=== PATIENT | male | born 2000 | race Caucasian/White ===

== ENCOUNTER 2021-09-17 11:10 | Outpatient (REF) | payer OTHER, SELFPAY ==
[2021-09-17 13:22] LABS: MANUAL DIFF FLAG NO
[2021-09-17 13:25] LABS: Basophils Percent Auto 0.7 % (0-2); Eosinophils Absolute Auto 0.1 X10*3/uL (0.0-0.4); Eosinophils Percent Auto 1.6 % (0-4); Hematocrit 39.5 % (42.0-52.0); Hemoglobin 13.5 g/dl (14.0-18.0); Imm Gran Abs Auto 0.01 X10*3/uL (0.00-0.03); Imm Gran Pct Auto 0.2 % (0.0-0.4); Lymphocytes Percent Auto 36.3 % (20-40); Mean Corpuscular HGB Conc 34.2 g/dl (31.0-36.0); Mean Corpuscular Hemoglobin 32.1 pg (27.0-33.0); Mean Platelet Volume 11.5 fL (9.4-12.4); Monocytes Absolute Auto 0.3 X10*3/uL (0.1-1.2); Monocytes Percent Auto 5.5 % (2-11); Neutrophils Absolute Auto 3.1 x10*3/uL (2.0-8.3); Neutrophils Percent Auto 55.7 % (45-73); Platelet Count 181 X10*3/uL (160-400); Red Cell Distribution Width 13.9 % (11.0-16.0); White Blood Count 5.6 X10*3/uL (4.8-10.8)
[2021-09-17 13:52] LABS: Alanine Aminotransferase 34 U/L (0-40); Albumin Level 4.5 g/dL (3.5-5.0); Alkaline Phosphatase 84 U/L (39-117); Anion Gap 11 (12-20); Aspartate Amino Transferase 20 U/L (5-37); Bilirubin Total 0.7 mg/dL (0.0-1.0); Blood Urea Nitrogen 17 mg/dL (9-16); Calcium 9.9 mg/dL (8.4-10.2); Carbon Dioxide 29 mmol/L (22-29); Chloride 105 mmol/L (96-108); Cholesterol 223 mg/dL; Estimated Glomerular Filt Rate > 60; Glucose Fasting 80 mg/dL (60-99); HDL Cholesterol 49 mg/dL; LDL Cholesterol Calculated 151 mg/dl; Potassium 5.2 mmol/L (3.3-5.1); Sodium 140 mmol/L (135-145); Total Protein 7.4 g/dL (6.5-8.0); Triglycerides 119 mg/dL
[2021-09-17 14:12] LABS: TSH reflex Free T4 0.67 uIU/mL (0.32-4.0)
[2021-09-17 14:26] LABS: Monotest Negative (Negative)
[2021-09-19 10:26] LABS: HBsAGNum1 0.19 S/CO (0.00-0.99); Hepatitis B Surface Antigen Negative (Negative); ~HepC Num1 0.22 S/CO (0.00-0.79); ~Hepatitis C Antibody Nonreactive (Nonreactive)
[2021-09-19 11:27] LABS: HBS Num1 7.97 mIU/mL (0-7.99); HBc Num1 0.12 S/CO (0.00-0.79); HIV AB/AG Nonreactive (Nonreactive); HIV Num 1 0.12 S/CO (0.00-0.99); Hepatitis B Core Antibody Nonreactive (Nonreactive); ~Hepatitis B Surface Antibody NONREACTIVE (Nonreactive)
[2021-09-20 08:34] LABS: Syphilis Screen Nonreactive (Nonreactive)
== END 2021-09-17 11:11 | disposition home or self-care (01) ==
LOC: HO.WFDLDS 11:10
PROVIDERS: Visit Provider Family Medicine
DX: Z00.00 Encounter for general adult medical examination without abnormal findings (principal); Z11.4 Encounter for screening for human immunodeficiency virus [HIV]; Z11.3 Encounter for screening for infections with a predominantly sexual mode of transmission; R59.1 Generalized enlarged lymph nodes
CPT/HCPCS: 36415; 80053; 80061; 84443; 85025; 86308; 86704; 86706; 86780; 86803; 87340; 87389

== ENCOUNTER 2021-10-02 13:44 | Outpatient (REF) | payer OTHER, SELFPAY ==
--- NOTE | ~2021-10-02 | CT_ITS ---
EXAMINATION: CT HEAD WITHOUT CONTRAST CLINICAL INFORMATION: Abnormal findings on diagnostic imaging COMPARISON: None available at the site TECHNIQUE: Contiguous axial imaging was performed from the skull base to vertex without intravenous administration of contrast. This CT examination was performed using dose optimization techniques as appropriate, variously including the following: *Automated exposure control *Adjustment of mA and/or kV according to patient size (this includes techniques or standardized protocols for targeted exams where dose is matched to indication/reason for exam; i.e. extremities or head) *Use of iterative reconstruction technique DLP: 768 mGy-cm FINDINGS: There is no evidence of acute intracranial hemorrhage or territorial infarction. There is a small right frontal extra-axial fluid collection likely a small arachnoid cyst or old seroma. No abnormal mass effect or midline shift is seen. Reeves to white matter differentiation is well preserved. No extra-axial fluid collections are identified. The ventricles are normal in size. There is no abnormal attenuation within the brain parenchyma. The osseous structures and soft tissues are normal. The mastoid air cells and visualized portions of the paranasal sinuses are well aerated. CT/CT head/brain wo con IMPRESSION: No acute intracranial process seen. Small right frontal extra-axial subarachnoid cyst. Differential diagnoses includes seroma.
== END 2021-10-02 13:45 | disposition home or self-care (01) ==
LOC: HO.CT 13:44
PROVIDERS: PCP Family Medicine; Visit Provider Family Medicine
DX: R93.0 Abnormal findings on diagnostic imaging of skull and head, not elsewhere classified (principal)
CPT/HCPCS: 70450

== ENCOUNTER 2023-07-27 07:48 | Emergency (ER) | payer OTHER, SELFPAY ==
--- NOTE | ~2023-07-27 | XR_ITS ---
EXAMINATION: XR ANKLE, RIGHT XR FOOT, RIGHT CLINICAL INFORMATION: Right foot and ankle pain. COMPARISON: None. TECHNIQUE: AP, lateral and oblique views of the right foot were obtained. AP and oblique views of the right ankle were obtained. FINDINGS: There is a small bone fragment at the dorsal aspect of the talus. There is a mildly displaced oblique fracture of the distal fibula above the syndesmosis. There is likely disruption of the syndesmosis and widening of the distal talofibular articulation. There is moderate lateral soft tissue swelling. XR/XR ankle RT 2V IMPRESSION: Avulsion fracture at the dorsal aspect of the wrist. Mildly displaced oblique fracture of the distal fibula above the syndesmosis.
--- NOTE | ~2023-07-27 | XR_ITS ---
EXAMINATION: XR ANKLE, RIGHT XR FOOT, RIGHT CLINICAL INFORMATION: Right foot and ankle pain. COMPARISON: None. TECHNIQUE: AP, lateral and oblique views of the right foot were obtained. AP and oblique views of the right ankle were obtained. FINDINGS: There is a small bone fragment at the dorsal aspect of the talus. There is a mildly displaced oblique fracture of the distal fibula above the syndesmosis. There is likely disruption of the syndesmosis and widening of the distal talofibular articulation. There is moderate lateral soft tissue swelling. XR/XR foot RT 2V IMPRESSION: Avulsion fracture at the dorsal aspect of the wrist. Mildly displaced oblique fracture of the distal fibula above the syndesmosis.
[2023-07-27 07:58] VITALS: BP 149/85; PULSE 78; RESP 20; TEMP 36.7; O2SAT 96; BMI 24.4
[2023-07-27] MEDS: Ibuprofen 600 MG TABLET PO (12:05)
[2023-07-27] MEDS: oxyCODONE HCl Immed Release 5 MG TABLET PO (12:05)
--- NOTE | 2023-07-27 12:15 | ED.LOWEXIN ---
HPI - Extremity Injury (Lower) General Chief Complaint: Extremity Injury, Lower Stated Complaint: R ankel inj Time Seen by Provider: 07/27/23 11:15 History of Present Illness HPI Narrative: Patient complains of right ankle pain after twisting it in wet grass last night, it is very painful to bear weight Denies any other injury no numbness weakness or tingling Related Data Home Medications Medication Instructions Recorded Confirmed amoxicillin 875 mg-potassium 1 tab PO Q12H 09/17/21 clavulanate 125 mg tablet docusate sodium 100 mg capsule 100 mg PO DAILY 09/17/21 ibuprofen 800 mg tablet 800 mg PO TID 09/17/21 Previous Rx's Medication Instructions Recorded acetaminophen 500 mg tablet 1,000 mg (2 x 500 mg) PO QID PRN 07/27/23 pain #30 tabs ibuprofen 600 mg tablet 600 mg PO Q6H PRN pain #20 tabs 07/27/23 oxycodone 5 mg tablet 5 mg PO Q6H PRN pain #20 tabs 07/27/23 Allergies Allergy/AdvReac Type Severity Reaction Status Date / Time No Known Allergies Allergy Verified 09/17/21 10:41 [facility] Past Medical History Source: nursing notes reviewed Medical History (Updated 07/27/23 @ 12:16 by KAYKAY Grace) History of appendicitis Social History Social History Housing: House Patient Tobacco Use Status: Current everyday Tobacco user Cigarettes Per Day: 6 e-Cigarette/Vaping Use: Never Used Second Hand Smoke Exposure: No Advance Directives: No Advance Directives Information Provided: No service: No Current occupational status: employed Current occupational exposures/hazards: No Cognitive needs: No Hearing needs: No Vision needs: No Physical Exam Vital Signs: Vital Signs: Last Vital Signs Temp 98.0 F 07/27/23 07:58 Pulse 78 07/27/23 07:58 Resp 20 07/27/23 07:58 BP 149/85 H 07/27/23 07:58 Pulse Ox 96 07/27/23 07:58 O2 Del Method Room Air 07/27/23 07:58 BMI result Body Mass Index 24.4 General appearance no distress Head is normocephalic atraumatic Neck is supple Respiratory no distress Extremities the right ankle had tenderness ecchymosis and swelling around lateral malleolus, neurovascular intact distal, skin intact Other extremities normal Course Course Course Narrative: X-ray showed a avulsion fracture of the dorsal aspect of the talus as well as a mildly displaced oblique fracture of the distal fibula as well as some possible widening of the syndesmosis I texted orthopedic physician asset protection assistant jennifer who advised splint, nonweightbearing and follow in clinic He is given a posterior and sterile splint as well as crutches which she handle easily and is discharged Medications Administered Discontinued Medications Generic Name Dose Route Start Last Admin Trade Name Freq PRN Reason Stop Dose Admin Ibuprofen 600 mg 07/27/23 12:01 07/27/23 12:05 Ibuprofen 600 Mg Tablet PO 07/27/23 12:02 600 mg ONCE ONE Administration Oxycodone HCl 5 mg 07/27/23 12:01 07/27/23 12:05 Oxycodone Hcl Immed Release 5 Mg Tablet PO 07/27/23 12:02 5 mg ONCE ONE Administration Discharge Plan Discharge Clinical Impression: Ankle fracture Patient Disposition: Home, Self-Care Additional Instructions: X-ray showed a broken fibula as well as a bad ankle sprain Follow with orthopedist, you will call the office in the make an appointment Return any time any worse condition or any concerns Elevate the leg apply ice Prescriptions: New acetaminophen 500 mg tablet 1,000 mg PO QID PRN (Reason: pain) Qty: 30 0RF ibuprofen 600 mg tablet 600 mg PO Q6H PRN (Reason: pain) Qty: 20 0RF oxycodone 5 mg tablet 5 mg PO Q6H PRN (Reason: pain) Qty: 20 0RF Rx Instructions: Partial Fill upon patient request. No Action amoxicillin-pot clavulanate 875-125 mg tablet 1 tab PO Q12H docusate sodium 100 mg capsule 100 mg PO DAILY ibuprofen 800 mg tablet 800 mg PO TID Referrals: Dwight Rojas MD [Physician] - (Fibula fracture)
== END 2023-07-27 12:22 | disposition home or self-care (01) ==
PROVIDERS: Emergency Provider Emergency Medicine; PCP Family Medicine
DX: S82.891A Other fracture of right lower leg, initial encounter for closed fracture (principal); M25.571 Pain in right ankle and joints of right foot; F17.210 Nicotine dependence, cigarettes, uncomplicated; X50.1XXA Overexertion from prolonged static or awkward postures, initial encounter; Y93.9 Activity, unspecified; Y92.9 Unspecified place or not applicable; Y99.9 Unspecified external cause status; Z79.899 Other long term (current) drug therapy; Z71.6 Tobacco abuse counseling
CPT/HCPCS: 73600; 73620; 99283

== ENCOUNTER 2023-07-28 13:16 | Outpatient (AMB) | payer OTHER, SELFPAY ==
--- NOTE | 2023-07-28 13:19 | A.OFFVIS_ITS ---
Intake Vital Signs 07/28/23 13:22 Height 6 ft Weight 180 lb BMI 24.4 Intake Visit Reasons: FC- RT mildly displaced oblique fx distal fibula Intake Note: Darian is a 23 year old male who presents today for a evaluation of his right ankle pain, DOI 07/26/23. Patient reports twisting his right ankle on wet grass, it is very painful to bear weight. He states not in too much pain due to taking his pain medication. Allergies No Known Allergies Allergy (Verified 07/28/23 13:19) HPI FC- RT mildly displaced oblique fx distal fibula HPI Details 23-year-old male who presents in the off ice today, as a new patient, for an evaluation of right ankle pain. The patient presented to the ED on 07/27/2023 status post twisting his ankle on wet grass the night before, on 07/26/2023. X-rays of the right ankle were obtained. The patient was placed in a posterior and stirrup splint with crutches and instructed to remain non-weight bearing. He states it is painful to bear weight on the right lower extremity. He states his pain is not to bad due to taking the pain medication. [facility] Medical History (Updated 07/28/23 @ 15:22 by Yamilex Loyola) History of appendicitis Social History Housing: House Patient Tobacco Use Status: Current everyday Tobacco user Cigarettes Per Day: 6 e-Cigarette/Vaping Use: Never Used Second Hand Smoke Exposure: No service: No Current occupational status: employed Current occupational exposures/hazards: No Cognitive needs: No Hearing needs: No Vision needs: No Review of Systems Const All systems reviewed & are unremarkable except as noted in HPI and below Physical Exam Vital Signs: BMI result Body Mass Index 24.4 Const General: cooperative, healthy appearing and no acute distress Resp Effort & Inspection: normal respiratory effort and able to speak in complete sentences Cardio Rate: regular rate Peripheral pulses: Peripheral pulses 2+ throughout GI Palpation (GI): Soft to palpation Skin Lesions: no lesions Rashes: no rashes Extrem Other: Right ankle: Lateral malleolus mild to moderate edema. Slightly able to dorsiflex and plantarflex but is limited due to pain. Tenderness to palpation along the distal fibula. Sensation intact. Pedal pulse intact. Office Procedures Fracture Care Fracture Billing Code: Fracture Billing Code Assessment & Plan Assessment & Plan (1) Avulsion fracture of right talus: Code(s): S92.151A - Displaced avulsion fracture (chip fracture) of right talus, initial encounter for closed fracture Qualifiers: Encounter type: initial encounter Fracture alignment: nondisplaced Fracture type: closed Qualified Code(s): S92.154A - Nondisplaced avulsion fra cture (chip fracture) of right talus, initial encounter for closed fracture (2) Fracture of distal end of right fibula: Code(s): S82.831A - Other fracture of upper and lower end of right fibula, initial encounter for closed fracture Qualifiers: Encounter type: initial encounter Fracture morphology: unspecified fracture morphology Fracture type: closed Qualified Code(s): S82.831A - Other fracture of upper and lower end of right fibula, initial encounter for closed fracture Plan Mr. Morrissey is a 23-year-old male who presents in the office today, as a new patient, for an evaluation of right ankle pain. The patient presented to the ED on 07/27/2023 status post twisting his ankle on wet grass the night before, on 07/26/2023. X-rays of the right ankle were obtained. The patient was placed in a posterior and sterile splint with crutches and instructed to remain non-weight bearing. He states it is painful to bear weight on the right lower extremity. He states his pain is not to bad due to taking the pain medication. Dr. Rojas was available to via phone to review the case with me and a collaborative treatment plan was made. The patient will be placed in a tall walking boot, off the shelf, while in the office today. He will weight bear as tolerated with crutches. Follow up will be in 2 weeks with repeat x-rays to revaluate for possible ankle mortise disruption after weightbearing, or sooner if needed. X-rays of the right ankle, obtained on 07/27/2023, revealed: Avulsion fracture of the talus. Mildly displaced oblique fracture of the distal fibula above the syndesmosis with no ankle mortise disruption. Patient Instructions: Scribed for Veda Urias PA-C by eileen Guo scribe, on 07/28/2023 at 1:30 pm, EST. Coding Level of Care Code New Pt Level 4 (45867) Diagnoses Closed nondisplaced avulsion fracture of right talus, initial encounter S92.154A Encounter type: initial encounter Fracture alignment: nondisplaced Fracture type: closed Closed fracture of distal end of right fibula, unspecified fracture morphology, initial encounter S82.831A Encounter type: initial encounter Fracture morphology: unspecified fracture morphology Fracture type: closed CPT Codes Fracture Care - Fracture Billing Code: Fracture Billing Code ([id number])
[2023-07-28 13:22] VITALS: BMI 24.4
== END 2023-07-28 14:08 | disposition home or self-care (01) ==
PROVIDERS: PCP Family Medicine; Visit Provider Physician Assistant
DX: S92.154A Nondisplaced avulsion fracture (chip fracture) of right talus, initial encounter for closed fracture (principal); S82.831A Other fracture of upper and lower end of right fibula, initial encounter for closed fracture; X50.9XXA Other and unspecified overexertion or strenuous movements or postures, initial encounter
CPT/HCPCS: 99204

== ENCOUNTER → 2023-07-28 13:16 | Outpatient (BNVA) | payer OTHER, SELFPAY | PROVIDERS: PCP Family Medicine; Visit Provider Physician Assistant | DX: S92.154A Nondisplaced avulsion fracture (chip fracture) of right talus, initial encounter for closed fracture (principal); S82.831A Other fracture of upper and lower end of right fibula, initial encounter for closed fracture | CPT/HCPCS: 99202 ==

== ENCOUNTER 2023-08-18 10:02 | Outpatient (AMB) | payer OTHER, SELFPAY ==
--- NOTE | 2023-08-18 10:12 | A.OFFVIS_ITS ---
Intake Vital Signs 08/18/23 10:15 Height 6 ft Weight 180 lb BMI 24.4 Intake Visit Reasons: OV - right ankle fx, DOI 07/26/23 Intake Note: Darian is a 23 year old male who presents today for a evaluation of his right distal fibula fx, DOI 07/26/23. Patient reports his pain is getting better. He states that the boot is providing him with relief. Allergies No Known Allergies Allergy (Verified 07/28/23 13:19) HPI OV - right ankle fx, DOI 07/26/23 HPI Details 23-year-old male who presents in the off ice today for a follow up of right ankle avulsion fracture of the talus and distal end of the right fibula, which occurred on 07/26/2023 status post slipping on wet grass causing him to twist his ankle. I last saw the patient in the office on 07/28/2023 when he was placed in a tall walking boot and in instructed to weight bear as tolerated with the aid of crutches. The patient reports the pain is getting better and states the boot is giving him relief. [facility] Medical History (Updated 07/28/23 @ 15:22 by Yamilex Loyola) History of appendicitis Social History Housing: House Patient Tobacco Use Status: Current everyday Tobacco user Cigarettes Per Day: 6 e-Cigarette/Vaping Use: Never Used Second Hand Smoke Exposure: No service: No Current occupational status: employed Current occupational exposures/hazards: No Cognitive needs: No Hearing needs: No Vision needs: No Review of Systems Const All systems reviewed & are unremarkable except as noted in HPI and below Physical Exam Vital Signs: BMI result Body Mass Index 24.4 Const General: cooperative, healthy appearing and no acute distress Resp Effort & Inspection: normal respiratory effort and able to speak in complete sentences Cardio Rate: regular rate Peripheral pulses: Peripheral pulses 2+ throughout GI Palpation (GI): Soft to palpation Skin Lesions: no lesions Rashes: no rashes Extrem Other: Right ankle: Tenderness to palpation along the lateral malleolus of the right ankle. Mild tenderness to palpation medial malleolus. No tenderness to palpation over the ATFL or deltoid. Able to dorsiflex, plantarflex, inversion, and eversion with mild to moderate stiffness and pain. Negative anterior drawer. Sensation intact. Pedal pulse intact. Assessment & Plan Assessment & Plan (1) Avulsion fracture of right talus: Code(s): S92.151A - Displaced avulsion fracture (chip fracture) of right talus, initial encounter for closed fracture Qualifiers: Encounter type: initial encounter Fracture alignment: nondisplaced Fracture type: closed Qualified Code(s): S92.154A - Nondisplaced avulsion fracture (chip fracture) of right talus, initial encounter for closed fracture (2) Fracture of distal end of right fibula: Code(s): S82.831A - Other fracture of upper and lower end of right fibula, initial encounter for closed fracture Qualifiers: Encounter type: initial encounter Fracture morphology: unspecified fracture morphology Fracture type: closed Qualified Code(s): S82.831A - Other fracture of upper and lower end of right fibula, initial encounter for closed fracture Plan Mr. Morrissey is a 23-year-old male who presents in the office today for a follow up of right ankle avulsion fracture of the talus and distal end of the right fibula, which occurred on 07/26/2023 status post slipping on wet grass causing him to twist his ankle. I last saw the patient in the office on 07/28/2023 when he was placed in a tall walking boot and in instructed to weight bear as tolerated with the aid of crutches. The patient reports the pain is getting better and states the boot is giving him relief. The patient will remain in the boot. He may weight bear as tolerated. He will be referred to physical therapy to work on ROM. Follow up will be in 4-5 weeks, or sooner if needed. X-rays of the right ankle which were obtained while in the office today and were reviewed by me, Veda Urias PA-C, revealed routine healing of a right avulsion fracture and distal fibula fracture with no ankle mortise disruption. Orders: Orders XR ankle RT min 3V Today M25.579 - Pain in unspecified ankle and joints of unspecified foot Patient Instructions: Scribed for Veda Urias PA-C by Yamilex Loyola medical scientist, on 08/18/2023 at 10:31 am, EST. Coding Level of Care Code Global (24715) Diagnoses Closed nondisplaced avulsion fracture of right talus, initial encounter S92.154A Encounter type: initial encounter Fracture alignment: nondisplaced Fracture type: closed Closed fracture of distal end of right fibula, unspecified fracture morphology, initial encounter S82.831A Encounter type: initial encounter Fracture morphology: unspecified fracture morphology Fracture type: closed
[2023-08-18 10:15] VITALS: BMI 24.4
== END 2023-08-18 10:32 | disposition home or self-care (01) ==
PROVIDERS: PCP Family Medicine; Visit Provider Physician Assistant
DX: S92.154A Nondisplaced avulsion fracture (chip fracture) of right talus, initial encounter for closed fracture (principal); S82.831A Other fracture of upper and lower end of right fibula, initial encounter for closed fracture
CPT/HCPCS: 99213

== ENCOUNTER 2023-08-18 11:15 | Outpatient (REF) | payer OTHER, SELFPAY ==
--- NOTE | ~2023-08-18 | XR_ITS ---
EXAMINATION: XR ANKLE, RIGHT CLINICAL INFORMATION: Pain. COMPARISON: Radiographs dated 07/27/2023. TECHNIQUE: AP, lateral, and mortise views of the right ankle. FINDINGS: There is stable alignment of a mildly displaced oblique fracture of the distal fibular shaft. No dislocation or significant joint effusion is seen. The previously noted avulsion fragment of the dorsal talus is less well appreciated than was noted previously. Boehler's angle is normal. There is no calcaneal spur. No focal soft tissue swelling, gas or foreign body is seen. XR/XR ankle RT min 3V IMPRESSION: There is stable alignment of a mildly displaced oblique fracture of the distal right fibula. The previously noted involvement fragment arising from the dorsal talus is now poorly appreciated.
== END 2023-08-18 11:16 | disposition home or self-care (01) ==
LOC: HO.HOSX 11:15
PROVIDERS: Visit Provider Physician Assistant
DX: M25.571 Pain in right ankle and joints of right foot (principal); S82.831A Other fracture of upper and lower end of right fibula, initial encounter for closed fracture; S92.154A Nondisplaced avulsion fracture (chip fracture) of right talus, initial encounter for closed fracture; W18.49XA Other slipping, tripping and stumbling without falling, initial encounter; Y93.01 Activity, walking, marching and hiking; Y92.9 Unspecified place or not applicable; Y99.9 Unspecified external cause status
CPT/HCPCS: 73610; 99212

== ENCOUNTER 2023-09-15 09:56 | Outpatient (AMB) | payer OTHER, SELFPAY ==
[2023-09-15 09:58] VITALS: BMI 24.4
--- NOTE | 2023-09-15 09:58 | A.OFFVIS_ITS ---
Intake Vital Signs 09/15/23 09:58 Height 6 ft Weight 180 lb BMI 24.4 Intake Visit Reasons: OV - RT distal end fibula/talus fx, DOI 07/26/23 Intake Note: Darian is a 23 year old male who presents today for a follow up of his right distal end fibula/talus fx, DOI 07/26/23. Patient reports no pain or discomfort today. He states that he missed his PT appointment. However he started to do at home exercises which he notices a good difference in his ROM. Allergies No Known Allergies Allergy (Verified 07/28/23 13:19) HPI OV - RT distal end fibula/talus fx, DOI 07/26/23 HPI Details 23-year-old male who presents in the off ice today for a follow up of right ankle avulsion fracture of the talus and distal end of the right fibula, which occurred on 07/26/2023 status post slipping on wet grass causing him to twist his ankle. I last saw the patient in the office on 08/18/2023 where he was to remain in the boot and weight bear as tolerated. He was also referred to [facility] sical therapy. While in the office today the patient reports no pain or discomfort. He states he missed his physical therapy appointment, however, he has been working on exercises at home. He states he has noticed good ROM improvements. [facility] Medical History (Updated 07/28/23 @ 15:22 by Yamilex Loyola) History of appendicitis Social History Housing: House Patient Tobacco Use Status: Current everyday Tobacco user Cigarettes Per Day: 6 e-Cigarette/Vaping Use: Never Used Second Hand Smoke Exposure: No service: No Current occupational status: employed Current occupational exposures/hazards: No Cognitive needs: No Hearing needs: No Vision needs: No Review of Systems Const All systems reviewed & are unremarkable except as noted in HPI and below Physical Exam Vital Signs: BMI result Body Mass Index 24.4 Const General: cooperative, healthy appearing and no acute distress Resp Effort & Inspection: normal respiratory effort and able to speak in complete sentences Cardio Rate: regular rate Peripheral pulses: Peripheral pulses 2+ throughout GI Palpation (GI): Soft to palpation Skin Lesions: no lesions Rashes: no rashes Extrem Other: Right ankle: Normal to inspection. No ecchymosis, erythema, or edema. Patient is able to demonstrate dorsiflexion, plantar flexion, pronation and supination. Mild pain with eversion. No tenderness to palpation at the fracture site. Negative anterior drawer. Sensation intact. Pedal Pulse intact. Assessment & Plan Assessment & Plan (1) Avulsion fracture of right talus: Code(s): S92.151A - Displaced avulsion fracture (chip fracture) of right talus, initial encounter for closed fracture Qualifiers: Encounter type: initial encounter Fracture alignment: nondisplaced Fracture type: closed Qualified Code(s): S92.154A - Nondisplaced avulsion fracture (chip fracture) of right talus, initial encounter for closed fracture (2) Fracture of distal end of right fibula: Code(s): S82.831A - Other fracture of upper and lower end of right fibula, initial encounter for closed fracture Qualifiers: Encounter type: initial encounter Fracture morphology: unspecified fracture morphology Fracture type: closed Qualified Code(s): S82.831A - Other fracture of upper and lower end of right fibula, initial encounter for closed fracture Plan Mr. Morrissey is a 23-year-old male who presents in the office today for a follow up of right ankle avulsion fracture of the talus and distal end of the right fibula, which occurred on 07/26/2023 status post slipping on wet grass causing him to twist his ankle. I last saw the patient in the office on 08/18/2023 where he was to remain in the boot and weight bear as tolerated. He was also referred to physical therapy. While in the office today the patient reports no pain or discomfort. He states he missed his physical therapy appointment, however, he has been working on exercises at home. He states he has noticed good ROM improvements. The patient should begin to wean out of the boot over the next week. He should continue to work on exercises at home. Additional exercises were discussed while in the office today. We discussed the patient attending formal therapy but at this time due to his progress we have deferred. He can wear the lace up ankle brace he has at home when he his out of the house for additional support. He may return to activities as tolerated. Follow up will be PRN, or sooner if needed. X-rays of the right ankle which were obtained while in the office today and were reviewed by me, Veda Urias PA-C, revealed routine healing of a right ankle avulsion fracture. Orders: Orders XR ankle RT min 3V Today M25.579 - Pain in unspecified ankle and joints of unspecified foot Patient Instructions: Scribed by Yamilex Loyola director of graduate medical education, for Veda Urias PA-C on 09/15/2023 at 9:59 am, EST. Coding Level of Care Code Global (50990) Diagnoses Closed nondisplaced avulsion fracture of right talus, initial encounter S92.154A Encounter type: initial encounter Fracture alignment: nondisplaced Fracture type: closed Closed fracture of distal end of right fibula, unspecified fracture morphology, initial encounter S82.831A Encounter type: initial encounter Fracture morphology: unspecified fracture morphology Fracture type: closed
== END 2023-09-15 10:13 | disposition home or self-care (01) ==
PROVIDERS: PCP Family Medicine; Visit Provider Physician Assistant
DX: S92.154A Nondisplaced avulsion fracture (chip fracture) of right talus, initial encounter for closed fracture (principal); S82.831A Other fracture of upper and lower end of right fibula, initial encounter for closed fracture
CPT/HCPCS: 99213

== ENCOUNTER 2023-09-15 10:08 | Outpatient (REF) | payer OTHER, SELFPAY ==
--- NOTE | ~2023-09-15 | XR_ITS ---
EXAMINATION: XR ANKLE, RIGHT CLINICAL INFORMATION: Pain in unspecified ankle and joints. COMPARISON: Prior radiographs, most recently 08/18/2023. TECHNIQUE: AP, lateral, and mortise views of the right ankle. FINDINGS: There is stable alignment of an oblique, mildly displaced fracture of the distal right fibular shaft. There is mild adjacent periosteal callus formation. No dislocation is seen. There is no right ankle joint effusion. Boehler's angle is normal. There is no calcaneal spur. No focal soft tissue swelling, gas or foreign body seen. XR/XR ankle RT min 3V IMPRESSION: There is continued stable alignment of a mildly displaced oblique fracture of the distal right fibula. There is mild adjacent callus formation.
== END 2023-09-15 10:09 | disposition home or self-care (01) ==
LOC: HO.HOSX 10:08
PROVIDERS: Visit Provider Physician Assistant
DX: S92.154D Nondisplaced avulsion fracture (chip fracture) of right talus, subsequent encounter for fracture with routine healing (principal); S82.831D Other fracture of upper and lower end of right fibula, subsequent encounter for closed fracture with routine healing
CPT/HCPCS: 73610; 99212

== ENCOUNTER 2024-08-22 08:09 | Outpatient (AMB) | payer OTHER, SELFPAY ==
--- NOTE | 2024-08-22 08:10 | A.OFFPC_ITS ---
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 including the following: * your [facility] Medical Record number * your personal home email address * name * date of Please note: In order to enroll in the [facility] Patient Portal, we need to have your email address on file in your electronic medical record. ?The email address needs to be specific for one person (yourself) in order for your Portal enrollment to be successful. ?You can update your email address in person with our Registration staff when you are registering for a hospital visit. ?Otherwise, you will need to come to the Health Information Management (Medical Records) Department at [facility]. ?We are open from Thursday ? Thursday from 7:30 a.m. ? 4:30 p.m. ?You will be required to present a photo id. Once you have successfully enrolled in the Patient Portal, you will receive a one-time user id and password for the Portal, sent to your email address. ?This will allow you to log into the Patient Portal within 99 hrs and reset your own logon id and password, and define personal security questions. ?Once your permanent login and password have been set, you can log into the [facility] Patient Portal at any time via the blue button above or from the Portal Logon button on any page of the [facility] website. [facility] and [facility] encourage all of our patients to enroll in Patient Portal as it presents a valuable opportunity for patients and their families to actively participate in their care and stay healthy Welcome to [facility]. ?We look forward to working with you. Health screenings for men ages 40 to 64 You should visit your health care provider regularly, even if you feel healthy. The purpose of these visits is to: Screen for medical issues Assess your risk for future medical problems Encourage a healthy lifestyle Update vaccinations and other preventive care services Help you get to know your provider in case of an illness Information Even if you feel fine, you should still see your provider for regular checkups. These visits can help you avoid problems in the future. For example, the only way to find out if you have high blood pressure is to have it checked regularly. High blood sugar and high cholesterol level also may not have any symptoms in the early stages. Simple blood tests can check for these conditions. There are specific times when you should see your provider or receive specific health screenings. The [place] Preventive Services Task Force publishes a list of recommended screenings. Below are screening guidelines for men ages 40 to 64. BLOOD PRESSURE SCREENING Have your blood pressure checked at least once every year. Watch for blood pressure screenings in your area. Ask your provider if you can stop in to have your blood pressure checked. Ask your provider if you need your blood pressure checked more often if: You have diabetes, heart disease, kidney problems, or are overweight or have certain other health conditions You have a first-degree relative with high blood pressure You are Black Your blood pressure top number is from 120 to 129 mm Hg, or the bottom number is from 70 to 79 mm Hg If the top number is 130 mm Hg or greater or the bottom number is 80 mm Hg or greater, this is considered stage 1 hypertension. Schedule an appointment with your provider to learn how you can lower your blood pressure. Effects of age on blood pressure CHOLESTEROL SCREENING Cholesterol screening should begin at age 35 for men with no known risk factors for coronary heart disease. Repeat cholesterol screening should take place: Every 5 years for men with normal cholesterol levels More often if changes occur in lifestyle (including weight gain and diet) More often if you have diabetes, heart disease, kidney problems, or certain other conditions COLORECTAL CANCER SCREENING If you are under age 45, talk to your provider about getting screened. You may need to be screened if you have a strong family history of colon cancer or polyps. Screening may also be considered if you have risk factors such as a history of inflammatory bowel disease or polyps. If you are age 45 to 75, you should be screened for colorectal cancer. There are several screening tests available: A stool-based fecal occult blood (gFOBT) or fecal immunochemical test (FIT) every year A stool sDNA test every 1 to 3 years Flexible sigmoidoscopy every 5 years or every 10 years with stool testing FIT done every year CT colonography (virtual colonoscopy) every 5 years Colonoscopy every 10 years You may need a colonoscopy more often if you have risk factors for colorectal cancer, such as: Ulcerative colitis A personal or family history of colorectal cancer A history of growths in your colon called adenomatous polyps DENTAL EXAM Go to the dentist once or twice every year for an exam and cleaning. Your dentist will evaluate if you have a need for more frequent visits. DIABETES SCREENING All adults who do not have risk factors for diabetes should be screened starting at age 35 and repeated every 3 years. If you have other risk factors for diabetes, such as a first degree relative with diabetes, overweight or obesity, high blood pressure, prediabetes, or a history of heart disease, you may be tested more often. If you are overweight and have other risk factors, such as high blood pressure and are planning to become , screening is recommended. EYE EXAM Have an eye exam every 2 to 4 years ages 40 to 54 and every 1 to 3 years ages 55 to 64. Your provider may recommend more frequent eye exams if you have vision problems or glaucoma risk. Have an eye exam that includes an examination of your retina (back of your eye) at least every year if you have diabetes. IMMUNIZATIONS Commonly needed vaccines include: Flu shot: get one every year COVID-19 vaccine: ask your provider what is best for you Tetanus-diphtheria and acellular pertussis (Tdap) vaccine: have as one of your tetanus-diphtheria vaccines if you did not receive it as an adolescent Tetanus-diphtheria: have a booster (or Tdap) every 10 years Varicella vaccine: receive 2 doses if you never had chickenpox or the varicella vaccine and were born in 1980 or after Hepatitis B vaccine: receive 2, 3, or 4 doses, depending on your exact circumstances, if you did not receive these as a child or adolescent, until age 59 Shingles (herpes zoster) vaccine: at or after age 50 Ask your provider if you should receive other immunizations, especially if you have certain medical conditions, such as diabetes or are at increased risk for some diseases such as pneumonia. INFECTIOUS DISEASE SCREENING Screening for hepatitis C: all adults ages 18 to 79 should get a one-time test for hepatitis C. Screening for human immunodeficiency virus (HIV): all people ages 15 to 65 should get a one-time test for HIV. Depending on your lifestyle and medical history, you may need to be screened for infections such as syphilis, chlamydia, and other infections. LUNG CANCER SCREENING You should have an annual screening for lung cancer with low-dose computed tomography (LDCT) if: You are age 50 to 80 years AND You have a 20 pack-year smoking history AND You currently smoke or have quit within the past 15 years OSTEOPOROSIS SCREENING If you are age 50 to 64 and have risk factors for osteoporosis, you should discuss screening with your provider. Risk factors can include long-term steroid use, low body weight, smoking, heavy alcohol use, having a fracture after age 50, or a family history of hip fracture or osteoporosis. Osteoporosis PHYSICAL EXAM All adults should visit their provider from time to time, even if they are healthy. The purpose of these visits is to: Screen for diseases Assess risk of future medical problems Encourage a healthy lifestyle Update vaccinations and other preventive care services Maintain a relationship with a provider in case of an illness Your height, weight, and body mass index (BMI) should be checked at every exam. During your exam, your provider may ask you about: Depression and anxiety Diet and exercise Alcohol and tobacco use Safety, such as use of seat belts and smoke detectors Your medicines and risk for interactions PROSTATE CANCER SCREENING If you're 55 through 69 years old, before having the test, talk to your provider about the pros and cons of having a PSA test. Ask about: Whether screening decreases your chance of dying from prostate cancer. Whether there is any harm from prostate cancer screening, such as side effects from testing or overtreatment of cancer when discovered. Whether you have a higher risk of prostate cancer than others. If you are age 55 or younger, screening is not generally recommended. You should talk with your provider about if you have a higher risk for prostate cancer. Risk factors include: Having a family history of prostate cancer (especially a brother or father) Being If you choose to be tested, the PSA blood test is repeated over time (yearly or less often), though the best frequency is not known. Prostate examinations are no longer routinely done on men with no symptoms. Prostate cancer SKIN EXAM Your provider may check your skin for signs of skin cancer, especially if you're at high risk. People at high risk include those who have had skin cancer before, have close relatives with skin cancer, or have a weakened immune system. TESTICULAR EXAM The US Preventive Services Task Force (USPSTF) now recommends against performing testicular self-exams. Doing testicular self-exams has been shown to have little to no benefit.
[2024-08-22 08:18] VITALS: BP 136/76; PULSE 69; RESP 13; O2SAT 96; BMI 26.7
== END 2024-08-22 08:43 | disposition home or self-care (01) ==
PROVIDERS: PCP Nurse Practitioner Family; Visit Provider Nurse Practitioner Family
DX: Z00.00 Encounter for general adult medical examination without abnormal findings (principal); F17.200 Nicotine dependence, unspecified, uncomplicated; F33.1 Major depressive disorder, recurrent, moderate; G93.0 Cerebral cysts; F41.1 Generalized anxiety disorder; K04.7 Periapical abscess without sinus; Z28.21 Immunization not carried out because of patient refusal

== ENCOUNTER → 2024-08-22 08:09 | Outpatient (BNVA) | payer OTHER, SELFPAY | PROVIDERS: PCP Nurse Practitioner Family; Visit Provider Nurse Practitioner Family | DX: Z00.00 Encounter for general adult medical examination without abnormal findings (principal); F33.1 Major depressive disorder, recurrent, moderate; F41.1 Generalized anxiety disorder; G93.0 Cerebral cysts; K04.7 Periapical abscess without sinus; F17.210 Nicotine dependence, cigarettes, uncomplicated; Z28.21 Immunization not carried out because of patient refusal | CPT/HCPCS: 96127; 99385 ==

== ENCOUNTER 2024-09-10 11:49 | Emergency (ER) | payer OTHER, SELFPAY ==
--- NOTE | ~2024-09-10 | XR_ITS ---
CLINICAL HISTORY: pain swelling 3 view right hand Comparison: None Findings: There is cortical irregularity of the base of the 4th metacarpal. A bony fragment is seen lateral to the hamate. On the lateral view, a bony fragment is seen on the posterior aspect of the wrist. No significant arthritic change. No erosions. No radiopaque foreign body. IMPRESSION: Suspect acute fracture of the base of the 4th metacarpal and possible of the base of the 5th metacarpal. Suspect acute displaced fracture of the hamate. Further evaluation by CT of the wrist is recommended. This document has been electronically signed by: Meagan Alvarez MD on 09/10/2024 13:18:05
[2024-09-10 11:52] VITALS: BP 132/86; PULSE 81; RESP 16; TEMP 36.8; O2SAT 99; BMI 25.1
--- NOTE | 2024-09-10 12:55 | ED.EXTPRO ---
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 He denies fevers, chills, rash. He denies IVDA. He notes he has never had this or any other joint swelling out of nowhere. MD Complaint: joint swelling and joint pain Onset (ago): day(s) (1) Pain Consistency: constant Location: right and other (hand) Quality: aching Radiation: none Relieving factors: immobilization Exacerbating factors: palpation Associated symptoms: denies other symptoms Related Data Previous Rx's ?Medication ?Instructions ?Recorded bupropion HCl 150 mg 24 hr tablet, 150 mg PO QAM #30 tabs 08/22/24 extended release (Wellbutrin XL) nicotine (polacrilex) 4 mg gum 4 mg buccal Q1H #100 ea 08/22/24 (Nicorette) cyclobenzaprine 10 mg tablet 10 mg PO TID PRN muscle spasm #20 09/10/24 tabs hydrocodone 5 mg-acetaminophen 325 1 tab PO Q6H PRN pain #10 tabs 09/10/24 mg tablet ibuprofen 600 mg tablet 600 mg PO Q6H PRN pain #30 tabs 09/10/24 Allergies Allergy/AdvReac Type Severity Reaction Status Date / Time No Known Allergies Allergy Verified 09/10/24 11:54 Review of Systems Review of Systems: Constitutional : No Fever, No Chills ENT/Mouth : No Ear Pain, No Hoarseness, No sore throat Eyes: No Eye Pain, No Swelling, No Redness, No Foreign Body Cardiovascular : No Chest Pain, No SOB Respiratory : No Cough, No Dyspnea Gastrointestinal : No Nausea, No Vomiting, No Diarrhea, No abdominal Pain Genitourinary : No Dysuria, No Hematuria Musculoskeletal : positive joint pain, No Myalgias, pos Joint Swelling Skin : No Skin lacerations, No rash Neuro : No Weakness, No Numbness, No Loss of Consciousness, No Dizziness, No Headache All other systems reviewed and are negative [facility] Past Medical History Attestation statement: The following information was validated with the patient. Source: old records reviewed Medical History Fracture of distal end of right fibula Avulsion fracture of right talus Depression History of appendicitis Surgical History History of appendectomy Family History Family History (Updated 08/22/24 @ 08:17 by Yoshi Posey MA) Mother Mental health disorder Paternal Grandmother Cancer Paternal Grandmother Cancer Father Hypertension Diabetes Brother Asthma Social History Social History Household Members: Family Housing: House Are you a primary healthcare architect to a significant other at home: No Do you presently have visiting nurse or other home services: No Alcohol intake: current Alcohol intake frequency: a few times a week Patient Tobacco Use Status: Current everyday Tobacco user Cigarettes Per Day: 6 e-Cigarette/Vaping Use: Never Used Second Hand Smoke Exposure: No Advance Directives: No Advance Directives Information Provided: No service: No Current occupational status: employed and unemployed Current occupational exposures/hazards: No Cognitive needs: No Hearing needs: No Vision needs: No Physical Exam Vital Signs: Vital Signs: Last Vital Signs Temp 98.2 F 09/10/24 11:52 Pulse 81 09/10/24 11:52 Resp 16 09/10/24 11:52 BP 132/86 09/10/24 11:52 Pulse Ox 99 09/10/24 11:52 O2 Del Method Room Air 09/10/24 11:52 BMI result Body Mass Index 25.1 Appearance: Alert. Oriented X3. No acute distress. Eyes: Pupils equal, round and reactive to light. ENT: Pharynx normal. Neck: Normal inspection. Neck supple. CVS: Normal heart rate and rhythm. Pulses normal. Respiratory: No respiratory distress. Breath sounds normal. Abdomen: Soft and nontender. Skin: Skin warm and dry. Normal skin color. Normal skin turgor. Extremities: No lower extremity edema. R hand swelling no erythema NV intact, ttp along R hand dorsum no signs of infection and no puncture wound, normal flexion and extension Neuro: Oriented X 3. No motor deficit. No sensory deficit. 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 Will place in cock up splint and start on steroids/pain medications. Differential Diagnosis Differential Diagnoses: The differential diagnosis associated with the presentation includes strain, sprain, fracture, arthralgia Admission/Observation Consideration of admission/observation: Escalation of care including admission/observation considered splint and go home NV intact Lab Data [facility] Lab Attestation statement: I reviewed the patient's lab results. Labs: Lab Results 09/10/24 Range/Units 13:04 Uric Acid 5.7 (3.4-7.0) mg/dL Independent Interpretation I performed an independent interpretation of an: Plain X-Ray (fragment noted) Radiology Impression Discussion of test interpretation with radiology: I have reviewed the radiologist's reading. External Record Review External record reviewed: Outpatient record Prescription Management I considered prescription management with: Pain Medication and Other Procedures Orthopedic Splinting/Casting Injury #1: Side: right Upper Extremity Injury Location: wrist and hand Upper Extremity Immobilizer: volar splint Additional Comments: NV intact Discharge Plan Discharge Clinical Impression: Arthralgia of right wrist Fracture, metacarpal Qualifiers: Encounter type: initial encounter Metacarpal bone: fourth Fracture type: closed Metacarpal location: base Fracture alignment: nondisplaced Laterality: right Qualified Code(s): S62.344A - Nondisplaced fracture of base of fourth metacarpal bone, right hand, initial encounter for closed fracture Closed hamate fracture Qualifiers: Encounter type: initial encounter Hamate bone location: unspecified portion of hamate Fracture alignment: displaced Laterality: right Qualified Code(s): S62.141A - Displaced fracture of body of hamate [unciform] bone, right wrist, initial encounter for closed fracture Patient Disposition: Home, Self-Care Instructions: Hand Fracture (ED), Arthralgia (ED) Additional Instructions: keep splint dry follow up with orthopedics this week call Thursday for appointment return for any worsening pain, blue hands, numbness Findings: There is cortical irregularity of the base of the 4th metacarpal. A bony fragment is seen lateral to the hamate. On the lateral view, a bony fragment is seen on the posterior aspect of the wrist. No significant arthritic change. No erosions. No radiopaque foreign body. IMPRESSION: Suspect acute fracture of the base of the 4th metacarpal and possible of the base of the 5th metacarpal. Suspect acute displaced fracture of the hamate. Further evaluation by CT of the wrist is recommended. Prescriptions: New cyclobenzaprine 10 mg tablet 10 mg PO TID PRN (Reason: muscle spasm) Qty: 20 0RF hydrocodone-acetaminophen 5-325 mg tablet 1 tab PO Q6H PRN (Reason: pain) Qty: 10 0RF Rx Instructions: partial fill okay; Partial Fill upon patient request. ibuprofen 600 mg tablet 600 mg PO Q6H PRN (Reason: pain) Qty: 30 0RF No Action nicotine (polacrilex) [Nicorette] 4 mg gum 4 mg buccal Q1H Qty: 100 12RF bupropion HCl [Wellbutrin XL] 150 mg tablet extended release 24 hr 150 mg PO QAM Qty: 30 1RF Referrals: [facility] [Provider Group] (call Thursday and follow up) Stand Alone Forms: Work/School Release Print Language: Danish
--- OUTSIDE RECORDS SUMMARY | 2024-09-10 13:09 | XMS_ITS | Encounter Summary ---
Author Organization [facility] Address [address] [place] [address] Phone Care Team Providers Care Project Internship Name Role Phone Celestine Nuñez MD Primary Care Provider Sabino mcgee Encounter Details Date Type Department Care Team (Late st Contact Info) Description 12/27/2017 Conversion Encounter [facility] [address] [address] Celestine Nuñez MD Social History Tobacco Use Types Packs/Day Years Used Date Smoking Tobacco: Never Assessed Sex and Gender Information Value Date Recorded Sex Assigned at Not on file Legal Sex Male 6:16 PM EDT Gender Identity Not on file Sexual Orientation Not on file documented as of this encounter Plan of Treatment Not on file documented as of this encounter Visit Diagnoses Not on filedocumented in this encounter Care Teams Project Internship Relationship Specialty Start Date End Date Celestine Nuñez MD PCP - General 12/16/17 documented as of this encounter
--- OUTSIDE RECORDS SUMMARY | 2024-09-10 13:09 | XMS_ITS | Clinical Summary ---
Author Organization [facility] Address [address] [place] [id number] Phone Care Team Providers Care Ruby Engineer Name Role Phone Celestine Nuñez MD Primary Care Provider Sabino mcgee Immunizations Name Administration Dates Next Due DTaP 04/09/2004, 0,1998,09/06,1998 HPV Vaccine 9 Valent 06/27/2016,04/25/2015 HPV, Quadrivalent 07/13/2013 Hep B, ped/adol 01/21/1999,1998,1998 Hib (PRP-T) 07/15/1999, 9,1998,06/25 IPV 04/09/2004, 0,1998,06/25 Influenza, injectable, quadrivalent 05/04/2012 Influenza, injectable, quadr ivalent, preservative free 06/27/2016,04/25/2015,04/24/2014,07/13,04/21/2011 MMR 07/08/2002,07/15/1999 Meningococcal Conj (Menactra) MCV4P 04/25/2015,0 01/31/2010 Tdap 01/31/2010 Varicella 08/19/2007,05/15/1999 Family History Relation Name Status Comments Father Alive DM MMS age: 47 Maternal Grandfather hyperli pidemia, hypertension, DM Maternal Grandmother Alive depress ion, COPD Mother Alive bipolar, depres carol, hyperlipidemia.? peripheral neuropathy in R leg age: 42 Other Alive Siblings: mater nal half-brother vanessa ADHD and anxious depression. age: 19 Paternal Grandfather Alive Paternal Grandmother Alive DM, can cer, breast Social History Tobacco Use Types Packs/Day Years Used Date Smoking Tobacco: Never Assessed Sex and Gender Information Value Date Recorded Sex Assigned at Not on file Legal Sex Male 6:16 PM EDT Gender Identity Not on file Sexual Orientation Not on file Last Filed Vital Signs Vital Sign Reading Time Taken Comments Blood Pressure 138/84 03/19/2017 12:00 AM EDT Pulse - - Temperature 36.3 ??C (97.3 ??F) 03/19/2017 12:00 AM E DT Respiratory Rate - - Oxygen Saturation - - Inhaled Oxygen Concentration - - Weight 89.6 kg (197 lb 9.6 oz) 03/19/2017 12:00 AM EDT Height 177.8 cm (5' 10 ) 03/19/2017 12:00 AM EDT Body Mass Index 28.35 03/19/2017 12:00 AM EDT Plan of Treatment Health Maintenance Due Date Last Done Comments Consider Men B Vaccine (1 of 2 - Bexsero 2-dose series) 2014 DTaP,Tdap,and Td Vaccines (7 - Td or Tdap) 02/01/2020 01/31/2010, 04/09/2004, 12/12/1999, Additional history exists Influenza Vaccines (#1) 2024 06/27/20 16, 04/25/2015, 04/24/2014, Additional history exists COVID-19 Vaccine ( season) 2024 Hepatitis B Vaccines Completed 01/21/1999, 1998, 1998 HIB Vaccines Completed 07/15/1999, 10/1998, 1998, Additional history exists MMR Vaccines Completed 07/08/2002, 07/15/1999 IPV Vaccines Completed 04/09/2004, 11/1999, 1998, Additional history exists Varicella Vaccines Completed 08/19/2007, 05/15/1999 Meningococcal Vaccine Completed 04/25/2015, 010 HPV Vaccines Completed 06/27/2016, 04/10, 07/13/2013 Hepatitis A Vaccines Aged Out No long er eligible based on patient's age to complete this topic Men B Vaccine Aged Out No longer elig ible based on patient's age to complete this topic Pneumococcal Vaccine Aged Out No long er eligible based on patient's age to complete this topic Care Teams Ruby Engineer Relationship Specialty Start Date End Date Celestine Nuñez MD PCP - General 12/16/17
[2024-09-10 13:24] LABS: Uric Acid 5.7 mg/dL (3.4-7.0)
[2024-09-10 14:43] VITALS: BP 132/86; PULSE 81; RESP 16; TEMP 36.8; O2SAT 99
[2024-09-13 03:04] LABS: Lyme Abs Screen <0.90 index
== END 2024-09-10 14:43 | disposition home or self-care (01) ==
PROVIDERS: Emergency Provider Emergency Medicine; PCP Nurse Practitioner Family
DX: S62.344A Nondisplaced fracture of base of fourth metacarpal bone, right hand, initial encounter for closed fracture (principal); S62.141A Displaced fracture of body of hamate [unciform] bone, right wrist, initial encounter for closed fracture; X58.XXXA Exposure to other specified factors, initial encounter; M79.641 Pain in right hand; Y93.9 Activity, unspecified; Y92.9 Unspecified place or not applicable; Y99.9 Unspecified external cause status
CPT/HCPCS: 29125; 36415; 73130; 84550; 86617; 86618; 99282; 99283

== ENCOUNTER → 2024-09-10 12:30 | Outpatient (BNV) | payer OTHER, SELFPAY | PROVIDERS: Emergency Provider Emergency Medicine; PCP Nurse Practitioner Family; Visit Provider Nuclear Medicine | DX: S62.306A Unspecified fracture of fifth metacarpal bone, right hand, initial encounter for closed fracture (principal); S62.304A Unspecified fracture of fourth metacarpal bone, right hand, initial encounter for closed fracture | CPT/HCPCS: 73130 ==

== ENCOUNTER 2024-09-16 07:01 | Outpatient (REF) | payer OTHER, SELFPAY ==
--- NOTE | ~2024-09-16 | XR_ITS ---
EXAMINATION: XR HAND, RIGHT CLINICAL INFORMATION: M79.641 - Pain in right hand COMPARISON: 09/10/2024. TECHNIQUE: PA, Norgaard, and oblique views of the right hand. FINDINGS: Norgaard view is limited due to obliquity. Fracture dorsomedial hamate, difficult to perceive due to obliquity. Nondisplaced fracture base of fifth metacarpal. Nondisplaced fracture base of fourth metacarpal. No dislocation or malalignment. Negative ulnar variance. The fifth MCP joint and fifth digits appear intact/normal. There is a subtle periarticular erosion in the marginal aspect of the second MCP joint. No additional erosions or joint space loss. No significant periarticular osteopenia. There is soft tissue swelling dorsal wrist. XR/XR hand RT min 3V IMPRESSION: 1. Redemonstration of avulsion fracture dorsal medial hamate, as well as nondisplaced fractures base of fifth and fourth metacarpals. No dislocation. No additional fractures evident. Normal carpal alignment. 2. Joint spaces are preserved throughout. There is a subtle periarticular erosion in the second MCP joint. No joint space loss. No additional erosions seen. 3. Negative ulnar variance. Electronically signed by: Stevie Davison MD 09/16/2024 09:24 AM [facility]
--- OUTSIDE RECORDS SUMMARY | 2024-09-16 07:03 | XMS_ITS | Encounter Summary ---
Author Organization [facility] Address [address] [place] [address] Phone Care Team Providers Care Forest Firefighter Name Role Phone Celestine Nuñez MD Primary Care Provider Sabino mcgee Encounter Details Date Type Department Care Team (Late st Contact Info) Description 08/27/2009 Documentation [facility] [address] [place] [address] Family Medicine, Physician [address] [place] [address] Social History Tobacco Use Types Packs/Day Years [...] on filedocumented in this encounter Care Teams Forest Firefighter Relationship Specialty Start Date End Date Celestine Nuñez MD PCP - General 12/16/17 documented as of this encounter
--- OUTSIDE RECORDS SUMMARY | 2024-09-16 07:04 | XMS_ITS | Encounter Summary ---
Author Organization [facility] Address [address] [place] [address] Phone Care Team Providers Care Vp Communications Name Role Phone Celestine Nuñez MD Primary Care Provider Sabino mcgee Encounter Details Date Type Department Care Team (Late st Contact Info) Description 12/27/2017 Conversion Encounter [facility] [address] [address] Celestine Nuñez MD Social History Tobacco Use [...] on filedocumented in this encounter Care Teams Vp Communications Relationship Specialty Start Date End Date Celestine Nuñez MD PCP - General 12/16/17 documented as of this encounter
--- OUTSIDE RECORDS SUMMARY | 2024-09-16 07:04 | XMS_ITS | Clinical Summary ---
Author Organization [facility] Address [address] [place] [phone] Phone Care Team Providers Care Senior Gamemaster Name Role Phone Celestine Nuñez MD Primary Care Provider Sabino mcgee Immunizations Immunization Administration Dates Next Due DTaP 04/09/2004, 0,1998,09/06,1998 [...] Health Maintenance Due Date Last Done Comments DTaP,Tdap,and Td Vaccines (7 - Td or [...] age to complete this topic Care Teams Senior Gamemaster Relationship Specialty Start Date End Date Celestine Nuñez MD PCP - General 12/16/17
== END 2024-09-16 07:02 | disposition home or self-care (01) ==
LOC: HO.HOSX 07:01
DX: M79.641 Pain in right hand (principal); S62.304D Unspecified fracture of fourth metacarpal bone, right hand, subsequent encounter for fracture with routine healing; S62.141D Displaced fracture of body of hamate [unciform] bone, right wrist, subsequent encounter for fracture with routine healing
CPT/HCPCS: 26600; 73130; 99212

== ENCOUNTER 2024-09-16 08:51 | Outpatient (AMB) | payer OTHER, SELFPAY ==
--- NOTE | 2024-09-16 08:53 | MHC.OFFVIS ---
Intake Visit Reasons: FX - Right wrist Fx -DOI 09/09/24 Intake Note: Darian is a 24 year old right hand dominant male who presents today for a fracture care visit for his right wrist. Patient reports that he has been having pain kfor about 1 week now but does not recall any injury. His pain is felt at the ulnar aspect of the wrist and radiates up the 5th digit. He has some mild numbness and tingling in the finger. He is taking medication that was prescribed by [facility] - which is helping but he is out of it now. Allergies No Known Allergies Allergy (Verified 09/16/24 09:03) HPI HPI FX - Right wrist Fx -DOI 09/09/24: Details: Patient is a 24-year-old male who presents for evaluation of fracture of right hamate, right 4th metacarpal, questionable fracture of right 5th metacarpal. The patient states that he noticed this pain beginning on 09/09/2024, but states that he did not have any acute injury on that day that he remembers that feels would have caused this injury. Today, patient reports he is still experiencing significant pain in the ulnar and dorsal aspect of the right hand and wrist, with the worst pain being at the location of the fractures. Denies numbness or tingling in the right hand. No other acute complaints or concerns at this time. [facility] Medical History Fracture of distal end of right fibula Avulsion fracture of right talus Depression History of appendicitis Surgical History History of appendectomy Family History (Updated 08/22/24 @ 08:17 by Yoshi Posey MA) Mother Mental health disorder Paternal Grandmother Cancer Paternal Grandmother Cancer Father Hypertension Diabetes Brother Asthma Social History Household Members: Family Both parents involved: No Caregiver staying overnight: No Housing: House Are you a primary anesthesiologist and critical care to a significant other at home: No Do you presently have visiting nurse or other home services: No 75 years or older and lives alone: No Alcohol intake: current Alcohol intake frequency: a few times a week Patient Tobacco Use Status: Current everyday Tobacco user Cigarettes Per Day: 6 e-Cigarette/Vaping Use: Never Used Second Hand Smoke Exposure: No service: No Current occupational status: employed and unemployed Current occupational exposures/hazards: No Cognitive needs: No Hearing needs: No Vision needs: No Review of Systems Const All systems reviewed & are unremarkable except as noted in HPI and below Physical Exam Extrem Other: Patient is alert, oriented, and in no acute distress. Neuro: Normal sensation of the tips of all digits of the right hand at this time Vascular: Cap refill brisk Pain: Patient reports significant tenderness palpation of the dorsal and ulnar aspect of the proximal right hand and distal right wrist, particularly over the hamate, 4th metacarpal base, and 5th metacarpal base ROM: Patient is able to flex and extend all digits of the right hand without difficulty Skin: No lacerations or abrasions. General: Significant edema overlying the fracture sites of the right hand on the dorsal aspect No ecchymosis, erythema, or evidence of infection. Psych: Appears grossly normal Affect normal Attitude cooperative Office Procedures Casting/Splints 42684-[id number] Splint Application Procedure code (CPT) selection complete Results Reviewed Results Reviewed: X-rays obtained in the office today and independently reviewed by me, Sherman Carter PA-C, demonstrate displaced fracture of the right hamate with associated dislocation of the right 5th CMC joint. There also appears to be a nondisplaced fracture of the right 4th metacarpal. Assessment & Plan Assessment & Plan (1) Fracture of fourth metacarpal bone of right hand: Code(s): S62.304A - Unspecified fracture of fourth metacarpal bone, right hand, initial encounter for closed fracture Category: Medical (2) Fracture of hamate bone of right wrist: Code(s): S62.141A - Displaced fracture of body of hamate [unciform] bone, right wrist, initial encounter for closed fracture Category: Medical Plan 1. Right hamate fracture with associated CMC dislocation 2. Right 4th metacarpal fracture Patient is educated about this injury Patient is educated about the typical recovery course As discussed with Dr. Ramos, patient was referred for stat CT scan of the right wrist to assess the bony structures further Patient will also follow-up with Dr. Ramos on Thursday to discuss results of CT scan and what surgical intervention is indicated Patient expresses understanding of this Patient was placed into a dorsal wrist splint on the right Patient is educated about proper splint care and precautions Patient will follow-up on 09/20/[address] Ramos, sooner with any acute concerns Orders: Orders XR hand RT min 3V Today M79.641 - Pain in right hand CT wrist RT wo IV con Today S62.141A - Displaced fracture of body of hamate [unciform] bone, right wrist, initial encounter for closed fracture, S62.304A - Unspecified fracture of fourth metacarpal bone, right hand, initial encounter for closed fracture Coding Level of Care Code New Pt Level 3 (80784) Diagnoses Fracture of fourth metacarpal bone of right hand S62.304A Fracture of hamate bone of right wrist S62.141A CPT Codes Splint - CPT: 33801-[id number] Splint Application ([id number])
== END 2024-09-16 09:38 | disposition home or self-care (01) ==
PROVIDERS: PCP Nurse Practitioner Family
DX: S62.304A Unspecified fracture of fourth metacarpal bone, right hand, initial encounter for closed fracture (principal); S62.141A Displaced fracture of body of hamate [unciform] bone, right wrist, initial encounter for closed fracture
CPT/HCPCS: 26600; 99213

== ENCOUNTER → 2024-09-16 08:53 | Outpatient (BNV) | payer OTHER, SELFPAY | PROVIDERS: Visit Provider Radiology Diagnostic Radiology | DX: S62.344A Nondisplaced fracture of base of fourth metacarpal bone, right hand, initial encounter for closed fracture (principal); S62.316A Displaced fracture of base of fifth metacarpal bone, right hand, initial encounter for closed fracture | CPT/HCPCS: 73130; 73200 ==

== ENCOUNTER 2024-09-16 09:49 | Outpatient (REF) | END 2024-09-16 09:50 | disposition home or self-care (01) | LOC: HO.CT 09:49 | DX: S62.304A Unspecified fracture of fourth metacarpal bone, right hand, initial encounter for closed fracture (principal); S62.141A Displaced fracture of body of hamate [unciform] bone, right wrist, initial encounter for closed fracture ==

== ENCOUNTER 2024-09-20 11:21 | Outpatient (AMB) | payer OTHER, SELFPAY ==
--- NOTE | 2024-09-20 11:32 | A.OFFVIS_ITS ---
Vital Signs 09/20/24 11:37 Height 6 ft Weight 184 lb BMI 25.0 Intake Visit Reasons: OV-Right wrist Fx -DOI 09/09/24-follow up Intake Note: Darian 24 yr old male presents today for a follow up visit for his Right hand hamate and Right 4th metacarpal fracture from DOI 09/09/24. Last seen with Alejandrina Whitaker who sent patient for a CAT scan and he is here for review and to discuss if surgical intervention is needed. Allergies No Known Allergies Allergy (Verified 09/20/24 11:37) HPI HPI OV-Right wrist Fx -DOI 09/09/24-follow up: Details: Darian is a 24 year old right hand dominant man who presents for a CT scan review of his right hand fracture, DOI: ~09/09/24. He denies remembering any falls or known injury, but says his pain began on 09/09/24. He says he is doing better overall. He is a smoker of Marijuana, and is using Nicorette to quit cigarettes. He denies other recreational drug use. 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 [facility] Medical History Fracture of distal end of right fibula Avulsion fracture of right talus Depression History of appendicitis Surgical History History of appendectomy Family History (Updated 08/22/24 @ 08:17 by Yoshi Posey MA) Mother Mental health disorder Paternal Grandmother Cancer Paternal Grandmother Cancer Father Hypertension Diabetes Brother Asthma Social History Household Members: Family Housing: House Are you a primary transitional care nurse to a significant other at home: No Do you presently have visiting nurse or other home services: No Alcohol intake: current Alcohol intake frequency: a few times a week Patient Tobacco Use Status: Current everyday Tobacco user Cigarettes Per Day: 6 e-Cigarette/Vaping Use: Never Used Second Hand Smoke Exposure: No service: No Current occupational status: employed and unemployed Current occupational exposures/hazards: No Cognitive needs: No Hearing needs: No Vision needs: No Review of Systems Const All systems reviewed & are unremarkable except as noted in HPI and below Physical Exam Vital Signs: BMI result Body Mass Index 25.0 Const General: cooperative, healthy appearing and no acute distress Orientation/consciousness: patient oriented x3 HEENT Head: Yes normocephalic and Yes atraumatic Eyes EOM: EOMs intact bilaterally Resp Effort & Inspection: normal respiratory effort and able to speak in complete sen tences Cardio Jugular venous distension: no JVD Skin General skin exam: turgor normal Rashes: no rashes Neuro General: patient oriented x3 Extrem Other: Evaluation of Right Upper Extremity: The patient is alert, oriented, and in no acute distress Neuro: Median, Ulnar, Radial nerves motor and sensory intact and sensation is no rmal to the tips of all digits Vascular: Cap refill brisk ROM: He can weakly bring his fingers to a fist and back into extension No locking or catching Visible dorsal deformity & prominence at the 5th CMC joint Most tender to palpation about the 4th and 5th CMC joints and the hamate. Skin: No lacerations or abrasions or evidence of open fracture General: Resolving swelling & ecchymosis No Erythema or evidence of infection. Radiographs: 3 views of the right hand were taken and viewed by me today in clinic. They show a displaced hamate fracture, with depression of the base of the 5th metacarpal into the hamate, 5th metacarpal base fracture, and 4th metacarpal base fracture. CT/CT wrist RT wo IV con IMPRESSION: 1. Comminuted avulsion fracture arising from the dorsomedial and superior hamate. There are no additional carpal fractures identified. There is no carpal joint space widening or malalignment. 2. Avulsion fractures arising anterolaterally from the proximal fifth metacarpal. 3. No definite fracture of the fourth metacarpal. Remainder metacarpals intact. 4. The radius, ulna, and DRUJ are normal and intact. Mild negative ulnar variance. 5. Dorsal soft tissue swelling of the wrist with small joint effusion suspected. Electronically signed by: Stevie Davison MD 09/16/2024 10:53 AM EST [facility] 09/16/24 Dr. Ramos read of the CT scan: 1. There is a minimally displaced fracture of the base of the 4th metacarpal. Fourth CMC joint intact. 2. There is proximal migration of the base of the 5th metacarpal into the body of the hamate, 3. Fracture of the body of the hamate with dorsal ulnar and proximal displacement of the articular surface of the 5th CMC joint . Psych Appearance: grossly normal Affect: normal affect Attitude: cooperative Assessment & Plan Assessment & Plan (1) Fracture of fourth metacarpal bone of right hand: Code(s): S62.304A - Unspecified fracture of fourth metacarpal bone, right hand, initial encounter for closed fracture Category: Medical (2) Fracture of hamate bone of right wrist: Code(s): S62.141A - Displaced fracture of body of hamate [unciform] bone, right wrist, initial encounter for closed fracture Category: Medical (3) Fracture of fifth metacarpal bone of right hand: Code(s): S62.306A - Unspecified fracture of fifth metacarpal bone, right hand, initial encounter for closed fracture Category: Medical (4) MDD (major depressive disorder), recurrent episode: Code(s): F33.9 - Major depressive disorder, recurrent, unspecified Category: Medical Qualifiers: Major depression episode severity: moderate Qualified Code(s): F33.1 - Major depressive disorder, recurrent, moderate (5) AMADA (generalized anxiety disorder): Code(s): F41.1 - Generalized anxiety disorder Category: Medical (6) Smoker: Code(s): F17.200 - Nicotine dependence, unspecified, uncomplicated Category: Social Hx Plan Assessment & Plan: 1. Right hamate fracture with proximal dorsal migration of base of 5th metacarpal 2. Right 5th metacarpal base fracture and CMC displacement 3. Right 4th metacarpal base fracture Etiology unclear, DOI: ~09/09/24 all evidence points to an impact, likely punching something I educated him about these conditions I discussed operative and non-operative treatment options The patient would like to proceed with surgery The risks and benefits of operative treatment were discussed with the patient and the patient wishes to proceed with surgery. These risks include, but are not limited to risk of damage to blood vessels, nerves, tendons, infection, recurrence, incomplete relief of preoperative symptoms, persistent pain, poss ible need for further surgery and the risks associated with regional blocks and anesthesia. The plan is to take the patient to the operating room sometime on 09/22/24 for the following procedures: 1. Right hamate ORIF, under general 2. Right 5th Carpometacarpal ORIF, under general 3. Right 4th Carpometacarpal ORIF, under general All of the preoperative paperwork including the consent was reviewed today. All the patient's questions were answered. The patient understands that they will be contacted by our associate professor of surgery soon to schedule this procedure He denies Diabetes, blood thinners, asthma, heart, lung, kidney issues He is a smoker of Marijuana & uses Nicorette to remain off of Cigarettes. I explained the effects of smoking/vaping on wound/bone healing, and recommend they stop smoking while healing. They expressed understanding He has Depression & AMADA. Scribed for Lakshmi Ramos MD by Andrea Mcpherson, medical customer service representative, on 09/20/24 at 12:00 PM, EST. Coding Level of Care Code Est Pt Level 4 (12277) Diagnoses Fracture of fourth metacarpal bone of right hand S62.304A Fracture of hamate bone of right wrist S62.141A Fracture of fifth metacarpal bone of right hand S62.306A Moderate episode of recurrent major depressive disorder F33.1 Major depression episode severity: moderate AMADA (generalized anxiety disorder) F41.1 Smoker F17.200
[2024-09-20 11:37] VITALS: BMI 25.0
--- OUTSIDE RECORDS SUMMARY | 2024-09-20 12:58 | XMS_ITS | Encounter Summary ---
Author Organization [facility] Address [address] [place] [address] Phone Care Team Providers Care Pc Technician Name Role Phone Celestine Nuñez MD Primary Care Provider Sabino mcgee Encounter Details Date Type Department Care Team (Late st Contact Info) Description 08/27/2009 Documentation [facility] [place] [facility] [address] [place] [address] Family Medicine, Physician [address] [place] [address] Social History Tobacco Use Types Packs/Day Years [...] on filedocumented in this encounter Care Teams Pc Technician Relationship Specialty Start Date End Date Celestine Nuñez MD PCP - General 12/16/17 documented as of this encounter
--- OUTSIDE RECORDS SUMMARY | 2024-09-20 12:58 | XMS_ITS | Encounter Summary ---
Author Organization [facility] Address [address] [place] [address] Phone Care Team Providers Care Rfid Analyst Name Role Phone Celestine Nuñez MD Primary Care Provider Sabino mcgee Encounter Details Date Type Department Care Team (Late st Contact Info) Description 12/27/2017 Conversion Encounter [facility] [address] [address] Celestine Nuñez MD Social History Tobacco Use [...] on filedocumented in this encounter Care Teams Rfid Analyst Relationship Specialty Start Date End Date Celestine Nuñez MD PCP - General 12/16/17 documented as of this encounter
--- OUTSIDE RECORDS SUMMARY | 2024-09-20 12:58 | XMS_ITS | Clinical Summary ---
Author Organization [facility] Address [address] [place] [id number] Phone Care Team Providers Care Movie Extra Name Role Phone Celestine Nuñez MD Primary [...] age to complete this topic Care Teams Movie Extra Relationship Specialty Start Date End Date Celestine Nuñez MD PCP - General 12/16/17
== END 2024-09-20 12:48 | disposition home or self-care (01) ==
PROVIDERS: PCP Nurse Practitioner Family; Visit Provider Orthopaedic Surgery
DX: S62.304A Unspecified fracture of fourth metacarpal bone, right hand, initial encounter for closed fracture (principal); S62.141A Displaced fracture of body of hamate [unciform] bone, right wrist, initial encounter for closed fracture; S62.306A Unspecified fracture of fifth metacarpal bone, right hand, initial encounter for closed fracture; F33.1 Major depressive disorder, recurrent, moderate; F41.1 Generalized anxiety disorder; F17.200 Nicotine dependence, unspecified, uncomplicated
CPT/HCPCS: 99214

== ENCOUNTER → 2024-09-20 11:21 | Outpatient (BNVA) | payer OTHER, SELFPAY | PROVIDERS: PCP Nurse Practitioner Family; Visit Provider Orthopaedic Surgery | DX: S62.304A Unspecified fracture of fourth metacarpal bone, right hand, initial encounter for closed fracture (principal); S62.141A Displaced fracture of body of hamate [unciform] bone, right wrist, initial encounter for closed fracture; S62.306A Unspecified fracture of fifth metacarpal bone, right hand, initial encounter for closed fracture; F33.1 Major depressive disorder, recurrent, moderate; F41.1 Generalized anxiety disorder; F17.210 Nicotine dependence, cigarettes, uncomplicated | CPT/HCPCS: 99212 ==

== ENCOUNTER → 2024-09-22 09:59 | Day surgery (SDC) | payer OTHER, SELFPAY ==
--- NOTE | 2024-09-21 08:36 | P.CONAN_ITS ---
HPI - Anesthesia Eval Consult details Narrative: 24yo M for Right Cyst CMC ORIF, Hamate ORIF, Fourth Metacarpal Closed Reduction Perc Pinning Utox DOS requested by surgeon PMFSH Active Problems Active Problems: All Active Problems Fracture of fifth metacarpal bone of right hand (Acute) Fracture of fourth metacarpal bone of right hand (Acute) Fracture of hamate bone of right wrist (Acute) AMADA (generalized anxiety disorder) (Acute) Arachnoid cyst (Acute) MDD (major depressive disorder), recurrent episode (Acute) Abnormal CT scan (Acute) Dental abscess (Acute) Smoker (Acute) Screening for STD (sexually transmitted disease) (Acute) Laboratory exam ordered as part of routine general medical examination (Acute) Past Medical History Medical History Fracture of distal end of right fibula Avulsion fracture of right talus Depression History of appendicitis Family History Family History (Updated 08/22/24 @ 08:17 by Yoshi Posey MA) Mother Mental health disorder Paternal Grandmother Cancer Paternal Grandmother Cancer Father Hypertension Diabetes Brother Asthma Surgical History Surgical History History of appendectomy Social History Social History Household Members: Family Housing: House Are you a primary respiratory care faculty to a significant other at home: No Do you presently have visiting nurse or other home services: No Alcohol intake: current Alcohol intake frequency: a few times a week Patient Tobacco Use Status: Current everyday Tobacco user Cigarettes Per Day: 6 e-Cigarette/Vaping Use: Never Used Second Hand Smoke Exposure: No service: No Current occupational status: employed and unemployed Current occupational exposures/hazards: No Cognitive needs: No Hearing needs: No Vision needs: No Meds Allergies Allergy/AdvReac Type Severity Reaction Status Date / Time No Known Allergies Allergy Verified 09/20/24 11:37 Assessment and Plan Assessment Anesthesia Assessment: Chart Reviewed
--- NOTE | 2024-09-22 07:44 | P.OP_ITS ---
Operative Note Operative Note Date of Service: 09/22/24 Narrative: Operative Note Narrative: Preop diagnosis: 1. Right hamate fracture 2. Right 5th metacarpal base fracture and CMC joint instability and displacement 3. Right 4th metacarpal base fracture Postop diagnosis: Same Procedure: 1. Right hamate fracture ORIF 2. Right 5th metacarpal base fracture and 5th CMC joint ORIF [ ] 3. Right 4th metacarpal base fracture ORIF Surgeon: Lakshmi Ramos MD Experimental Rocketsled Mechanic: Sherman MCCRACKEN Anesthesia: General Anesthesia [plus regional block] Findings: [ ] Implants: 0.062 K-wires times [ ] 0.054 K-wires times [ ] Tourniquet time: [ ] minutes EBL: 5.0 ml Specimen: None Drains: None Complications: None Disposition: Brought to the recovery room in stable condition Plan: [ ] Follow-up in 10-14 days for wound check, suture removal and pre clinic r adiographs Anticipate placement in a short-arm [ ] cast until 4-5 weeks postop, at which time pins may be removed based on interval bony healing Indications: The patient is a 24 year old man with right hamate fracture, and fractures of the 4th and 5th metacarpal bases, and instability with proximal migration of the 5th CMC joint into the hamate. . The risks and benefits of operative treatment, including but not limited to risk of damage to blood vessels, nerves, tendons, infection, recurrence, persistent pain or numbness, incomplete resolution of preoperative symptoms, or need for further surgery were discussed with the patient and they wished to proceed with surgery. Procedure: Once consent was obtained patient was brought back to the operating suite and placed in the operating table in a supine position. A regional block was performed by the anesthesia team. Perioperative antibiotics and anesthesia was administered by the anesthesia team. A tourniquet was applied to the proximal aspect of the right upper extremity and the limb was prepped and draped in a standard surgical fashion. The limb was elevated exsanguinated with Esmarch bandage and the tourniquet inflated to 250 mm of mercury for a total tourniquet time of [ ] minutes. A 2.5 cm dorsal longitudinal incision was made centered over the 4th and 5th CMC joints. The incision was made with a 15. Blade through the skin to the subcutaneous tissues. Careful dissection was then made down to the level of the 4th and 5th CMC joints and the dorsal aspect of the hamate. [ ] At this point the tourniquet was deflated and hemostasis obtained with a brief period of local pressure and bipolar electrocautery. The wound was copiously irrigated with normal saline. The subcutaneous layer was closed with 4-0 Vicryl suture, and the skin edges were reapproximated with 5-0 nylon suture. The wound was infiltrated with some 1% lidocaine with epinephrine for postop pain control and a sterile dressing was applied. [ splint ] The patient appears to have tolerated the procedure well and with no complications. All digits were well vascularized conclusion of the case.
--- NOTE | 2024-09-22 07:44 | MHC.SHP ---
Pre-Procedural Eval Section A - 24 Hr Update-Section A only Date of Service: 09/22/24 The patient is an INPATIENT: No Changes since office visit: No Cold of Flu in the past 2 weeks, No New Medical Problems, No Changes in Medication and No Patient answered all questions The patient has been examined within 24 hours of the surgical procedure. The History & Physical has been completed within 30 days and I have reviewed it.: Yes Section B - Complete if H&P > 30 days Chief Complaint: Unspecified fracture of fifth metacarpal bone, rig Allergies: Allergies Allergy/AdvReac Type Severity Reaction Status Date / Time No Known Allergies Allergy Verified 09/20/24 11:37 Plan I have reviewed the history and physical and performed a pertinent physical examination on my patient. No changes have occurred unless specified. Time Spent With Patient Time: Total time managing care of this patient today ____ minutes.
[2024-09-22 10:42] VITALS: BMI 24.8
--- OUTSIDE RECORDS SUMMARY | 2024-09-22 10:42 | XMS_ITS | Encounter Summary ---
Author Organization [facility] Address [address] [place] [address] Phone Care Team Providers Care Education Department Registrar Name Role Phone Celestine Nuñez MD Primary Care Provider Sabino mcgee Encounter Details Date Type Department Care Team (Late st Contact Info) Description 12/27/2017 Conversion Encounter [facility] [address] [address] Celestine Nuñez MD Social History Tobacco Use [...] on filedocumented in this encounter Care Teams Education Department Registrar Relationship Specialty Start Date End Date Celestine Nuñez MD PCP - General 12/16/17 documented as of this encounter
--- OUTSIDE RECORDS SUMMARY | 2024-09-22 10:42 | XMS_ITS | Clinical Summary ---
Author Organization [facility] Address [address] [place] [phone] Phone Care Team Providers Care Airborne Operations Name Role Phone Celestine Nuñez MD Primary [...] age to complete this topic Care Teams Airborne Operations Relationship Specialty Start Date End Date Celestine Nuñez MD PCP - General 12/16/17
--- OUTSIDE RECORDS SUMMARY | 2024-09-22 10:42 | XMS_ITS | Encounter Summary ---
Author Organization [facility] Address [address] [place] [address] Phone Care Team Providers Care Educational/Development Assistant Name Role Phone Celestine Nuñez MD Primary Care Provider Sabino mcgee Encounter Details Date Type Department Care Team (Late st Contact Info) Description 08/27/2009 Documentation [facility] [place] Family Medicine [address] [place] [address] Family Medicine, Physician [address] [place] [address] Social History Tobacco Use Types Packs/Day Years [...] on filedocumented in this encounter Care Teams Educational/Development Assistant Relationship Specialty Start Date End Date Celestine Nuñez MD PCP - General 12/16/17 documented as of this encounter
[2024-09-22 11:01] VITALS: BP 140/86; PULSE 82; RESP 16; TEMP 37.1; O2SAT 98
[2024-09-22 11:05] LABS: Amphetamine Screen Urine Not Detected (Not Detect); Barbiturates, Urine Not Detected (Not Detect); Benzodiazepines Screen Urine Not Detected (Not Detect); Buprenorphine Scr Not Detected (Not Detect); Cannabinoid Screen Urine POSITIVE (Not Detect); Cocaine Screen Urine POSITIVE (Not Detect); Fentanyl, urine Not Detected (Not Detect); Methadone Screen, Urine Not Detected (Not Detect); Opiate Screen Urine Not Detected (Not Detect); Oxycodone Screen Urine Not Detected (Not Detect); Phencyclidine Screen Urine Not Detected (Not Detect)
[2024-09-22] MEDS: Lactated Ringers 1,000 ML 100 ML IVCONT (11:10)
--- NOTE | 2024-09-22 11:29 | PC.NURSE ---
MD LEMONS BY BEDSIDE PATIENT IS POSITIVE FOR COCAINE AND MARIJUANA. CASE IS CANCLLED. IV REMOVED. PATIENT CALLING FOR HIS OWN RIDE HOME. AWARE OF PLAN THAT HE NEEDS TO BE OFF OF COCAINE FOR TWO WEEKS. OFFICE TO CALL AND RESCHEDULE.
== END ==
LOC: HO.SSS 10:00
PROVIDERS: Nurse Practitioner; Visit Provider Orthopaedic Surgery
DX: S62.306A Unspecified fracture of fifth metacarpal bone, right hand, initial encounter for closed fracture (principal); Z53.09 Procedure and treatment not carried out because of other contraindication; R82.5 Elevated urine levels of drugs, medicaments and biological substances; X58.XXXA Exposure to other specified factors, initial encounter
CPT/HCPCS: 80307; J0131; J0690

== ENCOUNTER 2024-10-05 09:52 | Outpatient (REF) | payer OTHER, SELFPAY ==
--- NOTE | ~2024-10-05 | XR_ITS ---
EXAMINATION: XR HAND 3 OR MORE VIEWS RIGHT HISTORY: M79.641 - Pain in right hand COMPARISON: Comparison is made with the prior examination dated 09/16/2024. FINDINGS: Three views of the right hand are submitted. Osseous mineralization is normal. Again seen is a mildly displaced fracture of the hamate and a fracture of the base of the 5th metacarpal. The joint spaces are preserved. The soft tissues are unremarkable. XR/XR hand RT min 3V IMPRESSION: Fractures of the hamate and base of 5th metacarpal. Electronically signed by: Harpal Shahid MD 10/06/2024 07:52 AM EST
--- OUTSIDE RECORDS SUMMARY | 2024-10-05 11:42 | XMS_ITS | Encounter Summary ---
Author Organization [facility] Address [address] [place] [address] Phone Care Team Providers Care Drivers License Examiner Name Role Phone Celestine Nuñez MD Primary Care Provider Sabino mcgee Encounter Details Date Type Department Care Team (Late st Contact Info) Description 08/27/2009 Documentation [facility] [place] [place] Family Medicine [address] [place] [address] Family Medicine, Physician [address] [place] [address] Social History Tobacco Use Types Packs/Day Years [...] on filedocumented in this encounter Care Teams Drivers License Examiner Relationship Specialty Start Date End Date Celestine Nuñez MD PCP - General 12/16/17 documented as of this encounter
--- OUTSIDE RECORDS SUMMARY | 2024-10-05 11:42 | XMS_ITS | Encounter Summary ---
Author Organization [facility] Address [address] [place] [address] Phone Care Team Providers Care Fibrous Wallboard Inspector Name Role Phone Celestine Nuñez MD Primary Care Provider Sabino mcgee Encounter Details Date Type Department Care Team (Late st Contact Info) Description 12/27/2017 Conversion Encounter [facility] [address] [address] Celestine Nuñez MD Social History Tobacco Use [...] on filedocumented in this encounter Care Teams Fibrous Wallboard Inspector Relationship Specialty Start Date End Date Celestine Nuñez MD PCP - General 12/16/17 documented as of this encounter
--- OUTSIDE RECORDS SUMMARY | 2024-10-05 11:42 | XMS_ITS | Clinical Summary ---
Author Organization [facility] Address [address] [place] [id number] Phone Care Team Providers Care Transactional Paralegal Name Role Phone Celestine Nuñez MD Primary [...] age to complete this topic Care Teams Transactional Paralegal Relationship Specialty Start Date End Date Celestine Nuñez MD PCP - General 12/16/17
== END 2024-10-05 09:53 | disposition home or self-care (01) ==
LOC: HO.HOSX 09:52
PROVIDERS: Visit Provider Orthopaedic Surgery
DX: M79.641 Pain in right hand (principal); S62.304D Unspecified fracture of fourth metacarpal bone, right hand, subsequent encounter for fracture with routine healing; S62.141D Displaced fracture of body of hamate [unciform] bone, right wrist, subsequent encounter for fracture with routine healing; S62.306D Unspecified fracture of fifth metacarpal bone, right hand, subsequent encounter for fracture with routine healing; F33.1 Major depressive disorder, recurrent, moderate; F41.1 Generalized anxiety disorder; F17.200 Nicotine dependence, unspecified, uncomplicated
CPT/HCPCS: 73130; 99212

== ENCOUNTER 2024-10-05 14:39 | Outpatient (AMB) | payer OTHER, SELFPAY ==
--- NOTE | 2024-10-05 14:49 | MHC.OFFVIS ---
Intake Visit Reasons: OV - RT Hamate/4th MC FX/5th CMC FX DOI 09/09/24 Intake Note: Darian 24 yr old male presents today for his follow up visit. States he was scheduled for surgery but was canceled due to being tested positive for Cocaine. States he is currently in a lot of pain. Allergies No Known Allergies Allergy (Verified 10/07/24 15:25) HPI HPI OV - RT Hamate/4th MC FX/5th CMC FX DOI 09/09/24: Details: Darian is a 24 year old right hand dominant man who returns to discuss his right hamate, 4th metacarpal, and 5th CMC joint fractures, DOI: ~09/09/24. He was scheduled for surgery on 09/22/24 but this was cancelled as he tested positive for Cocaine. He complains that he is in a lot of pain all the time. He feels somewhat limited in making a fist due to feeling a popping in his small finger. He is a smoker of Marijuana, and is using Nicorette to quit cigarettes. He denies other recreational drug use. 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 [facility] Medical History Fracture of distal end of right fibula Avulsion fracture of right talus Depression History of appendicitis Surgical History History of appendectomy Family History (Updated 08/22/24 @ 08:17 by Yoshi Posey MA) Mother Mental health disorder Paternal Grandmother Cancer Paternal Grandmother Cancer Father Hypertension Diabetes Brother Asthma Social History Household Members: Family Both parents involved: No Caregiver staying overnight: No Housing: House Are you a primary care manager to a significant other at home: No Do you presently have visiting nurse or other home services: No 75 years or older and lives alone: No Alcohol intake: current Alcohol intake frequency: a few times a week Patient Tobacco Use Status: Current everyday Tobacco user Tobacco use type: Cigarette Cigarette Packs Per Day: 0.5 Cigarettes Per Day: 10.0 e-Cigarette/Vaping Use: Never Used Second Hand Smoke Exposure: No service: No Current occupational status: employed and unemployed Current occupational exposures/hazards: No Cognitive needs: No Hearing needs: No Vision needs: No Physical Exam Extrem Other: Evaluation of Right Upper Extremity: The patient is alert, oriented, and in no acute distress Neuro: Median, Ulnar, Radial nerves motor and sensory intact and sensation is normal to the tips of all digits Vascular: Cap refill brisk ROM: With encouragement he can make a fist and extend all his digits With a tighter fist, I was palpating the 5th MCP joint, there was no instability He complains of pain with wrist ROM, but this was tightness due to his splint No instability in the 5th MCP joint with wrist motion Fracture mildly tender Mild hypersensitivity to light touch in the area Radiographs: 3 views of the right hand were taken and viewed by me today in clinic. They show a displaced hamate fracture, with depression of the base of the 5th metacarpal into the hamate, 5th metacarpal base fracture, and 4th metacarpal base fracture. CT/CT wrist RT wo IV con IMPRESSION: 1. Comminuted avulsion fracture arising from the dorsomedial and superior hamate. There are no additional carpal fractures identified. There is no carpal joint space widening or malalignment. 2. Avulsion fractures arising anterolaterally from the proximal fifth metacarpal. 3. No definite fracture of the fourth metacarpal. Remainder metacarpals intact. 4. The radius, ulna, and DRUJ are normal and intact. Mild negative ulnar variance. 5. Dorsal soft tissue swelling of the wrist with small joint effusion suspected. Electronically signed by: Stevie Davison MD 09/16/2024 10:53 AM EST 09/16/24 Dr. Ramos read of the CT scan: 1. There is a minimally displaced fracture of the base of the 4th metacarpal. Fourth CMC joint intact. 2. There is proximal migration of the base of the 5th metacarpal into the body of the hamate, 3. Fracture of the body of the hamate with dorsal ulnar and proximal displacement of the articular surface of the 5th CMC joint . Assessment & Plan Assessment & Plan (1) Fracture of fourth metacarpal bone of right hand: Code(s): S62.304A - Unspecified fracture of fourth metacarpal bone, right hand, initial encounter for closed fracture Category: Medical (2) Fracture of hamate bone of right wrist: Code(s): S62.141A - Displaced fracture of body of hamate [unciform] bone, right wrist, initial encounter for closed fracture Category: Medical (3) Fracture of fifth metacarpal bone of right hand: Code(s): S62.306A - Unspecified fracture of fifth metacarpal bone, right hand, initial encounter for closed fracture Category: Medical (4) MDD (major depressive disorder), recurrent episode: Code(s): F33.9 - Major depressive disorder, recurrent, unspecified Category: Medical Qualifiers: Major depression episode severity: moderate Qualified Code(s): F33.1 - Major depressive disorder, recurrent, moderate (5) AMADA (generalized anxiety disorder): Code(s): F41.1 - Generalized anxiety disorder Category: Medical (6) Smoker: Code(s): F17.200 - Nicotine dependence, unspecified, uncomplicated Category: Social Hx Plan Assessment & Plan: 1. Right hamate fracture with proximal dorsal migration of base of 5th metacarpal 2. Right 5th metacarpal base fracture and CMC displacement 3. Right 4th metacarpal base fracture Etiology unclear, DOI: ~09/09/24 all evidence points to an impact, likely punching something I educated him about these conditions I discussed operative and non-operative treatment options He was initially scheduled for surgery on 09/22/24 but this was cancelled due to testing positive for Cocaine. We will now manage this non-operatively. If he continues to have difficulties in the future, we may consider discussion a possible corrective hamate osteotomy, and I think the risks outweigh the benefits of this surgery at this time. He was fitted for a velcro wrist splint, to be worn for the next 2 weeks, after 2 weeks he will only wear his splint when out of the house with daily activities I discussed activity modifications, he is to lift nothing heavier than a cellphone for the next 2 weeks He will perform ROM exercises at home He should gently massage about the incision site to reduce the risk of hypersensitivity I explained the effects of smoking/vaping on wound/bone healing, and recommend they stop smoking while healing. They expressed understanding He will follow up in 4-6 weeks for a ROM check. May consider a referral to OT hand therapy Scribed for Lakshmi Ramos MD by Andrea Mcpherson senior medical billing specialist, on 10/05/24 at 3:05 PM, EST. Orders: Orders XR hand RT min 3V 10/05/24 M79.641 - Pain in right hand Coding Level of Care Code Est Pt Level 4 (81409) Diagnoses Fracture of fourth metacarpal bone of right hand S62.304A Fracture of hamate bone of right wrist S62.141A Fracture of fifth metacarpal bone of right hand S62.306A Moderate episode of recurrent major depressive disorder F33.1 Major depression episode severity: moderate AMADA (generalized anxiety disorder) F41.1 Smoker F17.200
--- OUTSIDE RECORDS SUMMARY | 2024-10-05 18:04 | XMS_ITS | Encounter Summary ---
Author Organization [facility] Address [address] [place] [address] Phone Care Team Providers Care [employer] [facility] Name Role Phone Celestine Nuñez MD Primary Care Provider Sabino mcgee Encounter Details Date Type Department Care Team (Late st Contact Info) Description 12/27/2017 Conversion Encounter [facility] [address] [address] Celestine Nuñez MD Social History Tobacco Use [...] on filedocumented in this encounter Care Teams [employer] Relationship Specialty Start Date End Date Celestine Nuñez MD PCP - General 12/16/17 documented as of this encounter
--- OUTSIDE RECORDS SUMMARY | 2024-10-05 18:04 | XMS_ITS | Encounter Summary ---
Author Organization [facility] Address [address] [place] [address] Phone Care Team Providers Care Package Crimper Name Role Phone Celestine Nuñez MD Primary Care Provider Sabino mcgee Encounter Details Date Type Department Care Team (Late st Contact Info) Description 08/27/2009 Documentation [facility] [place] [address] [place] [address] Family Medicine, Physician [address] [place] [address] Social History Tobacco Use Types Packs/Day Years [...] on filedocumented in this encounter Care Teams Package Crimper Relationship Specialty Start Date End Date Celestine Nuñez MD PCP - General 12/16/17 documented as of this encounter
--- OUTSIDE RECORDS SUMMARY | 2024-10-05 18:04 | XMS_ITS | Clinical Summary ---
Author Organization [facility] Address [address] [place] [phone] Phone Care Team Providers Care Small Arms Artillery Repairer Name Role Phone Celestine Nuñez MD Primary [...] age to complete this topic Care Teams Small Arms Artillery Repairer Relationship Specialty Start Date End Date Celestine Nuñez MD PCP - General 12/16/17
== END 2024-10-05 15:37 | disposition home or self-care (01) ==
PROVIDERS: Visit Provider Orthopaedic Surgery
DX: S62.304A Unspecified fracture of fourth metacarpal bone, right hand, initial encounter for closed fracture (principal); S62.141A Displaced fracture of body of hamate [unciform] bone, right wrist, initial encounter for closed fracture; S62.306A Unspecified fracture of fifth metacarpal bone, right hand, initial encounter for closed fracture; F33.1 Major depressive disorder, recurrent, moderate; F41.1 Generalized anxiety disorder; F17.200 Nicotine dependence, unspecified, uncomplicated
CPT/HCPCS: 99024

== ENCOUNTER → 2024-10-05 14:49 | Outpatient (BNV) | payer OTHER, SELFPAY | PROVIDERS: Visit Provider Radiology Diagnostic Radiology | DX: S62.316A Displaced fracture of base of fifth metacarpal bone, right hand, initial encounter for closed fracture (principal) | CPT/HCPCS: 73130 ==

== ENCOUNTER 2024-10-07 13:47 | Outpatient (AMB) | payer OTHER, SELFPAY ==
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
--- OUTSIDE RECORDS SUMMARY | 2024-10-07 15:54 | XMS_ITS | Encounter Summary ---
Author Organization [facility] Address [address] [place] [address] Phone Care Team Providers Care Rotary Engine Assembler Name Role Phone Celestine Nuñez MD Primary Care Provider Sabino mcgee Encounter Details Date Type Department Care Team (Late st Contact Info) Description 08/27/2009 Documentation [facility] Family Medicine [address] [place] [address] Family Medicine, Physician [address] [place] [address] Social History Tobacco Use Types Packs/Day Years [...] on filedocumented in this encounter Care Teams Rotary Engine Assembler Relationship Specialty Start Date End Date Celestine Nuñez MD PCP - General 12/16/17 documented as of this encounter
--- OUTSIDE RECORDS SUMMARY | 2024-10-07 15:54 | XMS_ITS | Clinical Summary ---
Author Organization [facility] Address [address] [place] [id number] Phone Care Team Providers Care Cattle Broker Name Role Phone Celestine Nuñez MD Primary [...] age to complete this topic Care Teams Cattle Broker Relationship Specialty Start Date End Date Celestine Nuñez MD PCP - General 12/16/17
--- OUTSIDE RECORDS SUMMARY | 2024-10-07 15:54 | XMS_ITS | Encounter Summary ---
Author Organization [facility] Address [address] [place] [address] Phone Care Team Providers Care Gearcase Assembler Name Role Phone Celestine Nuñez MD Primary Care Provider Sabino mcgee Encounter Details Date Type Department Care Team (Late st Contact Info) Description 12/27/2017 Conversion [facility]counter [facility] [address] [address] Celestine Nuñez MD Social History Tobacco Use [...] on filedocumented in this encounter Care Teams Gearcase Assembler Relationship Specialty Start Date End Date Celestine Nuñez MD PCP - General 12/16/17 documented as of this encounter
== END 2024-10-07 17:05 | disposition home or self-care (01) ==
LOC: HO.HMCFM 13:47
PROVIDERS: PCP Nurse Practitioner Family; Visit Provider Nurse Practitioner Family
DX: F33.1 Major depressive disorder, recurrent, moderate (principal); F41.1 Generalized anxiety disorder; F17.210 Nicotine dependence, cigarettes, uncomplicated; F14.90 Cocaine use, unspecified, uncomplicated

== ENCOUNTER → 2024-10-07 13:47 | Outpatient (BNVA) | payer OTHER, SELFPAY | PROVIDERS: PCP Nurse Practitioner Family; Visit Provider Nurse Practitioner Family ==

== ENCOUNTER 2024-12-08 14:50 | Outpatient (AMB) | payer OTHER, SELFPAY ==
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
--- OUTSIDE RECORDS SUMMARY | 2024-12-08 16:50 | XMS_ITS | Encounter Summary ---
Author Organization [facility] Address [address] [place] [address] Phone Care Team Providers Care Fruit Peeler Name Role Phone Celestine Nuñez MD Primary Care Provider Sabino mcgee Encounter Details Date Type Department Care Team (Late st Contact Info) Description 12/27/2017 Conversion [facility]counter [facility] [address] [address] Celestine Nuñez MD Social History Tobacco Use [...] on filedocumented in this encounter Care Teams Fruit Peeler Relationship Specialty Start Date End Date Celestine Nuñez MD PCP - General 12/16/17 documented as of this encounter
--- OUTSIDE RECORDS SUMMARY | 2024-12-08 16:50 | XMS_ITS | Clinical Summary ---
Author Organization [facility] Address [address] [place] [id number] Phone Care Team Providers Care Finance Business Partner Name Role Phone Celestine Nuñez MD Primary [...] age to complete this topic Care Teams Finance Business Partner Relationship Specialty Start Date End Date Celestine Nuñez MD PCP - General 12/16/17
--- OUTSIDE RECORDS SUMMARY | 2024-12-08 16:50 | XMS_ITS | Encounter Summary ---
Author Organization [facility] Address [address] [place] [address] Phone Care Team Providers Care Facility Planner Name Role Phone Celestine Nuñez MD Primary Care Provider Sabino mcgee Encounter Details Date Type Department Care Team (Late st Contact Info) Description 08/27/2009 Documentation [facility] [place] Family Medicine [address] [place] [address] Family Medicine, Physician [address] [place] [address] Social History Tobacco Use Types Packs/Day Years [...] on filedocumented in this encounter Care Teams Facility Planner Relationship Specialty Start Date End Date Celestine Nuñez MD PCP - General 12/16/17 documented as of this encounter
== END 2024-12-08 16:22 | disposition home or self-care (01) ==
LOC: HO.HMCFM 14:50
PROVIDERS: PCP Nurse Practitioner Family; Visit Provider Nurse Practitioner Family
DX: F41.1 Generalized anxiety disorder (principal); F33.1 Major depressive disorder, recurrent, moderate; F17.200 Nicotine dependence, unspecified, uncomplicated

== ENCOUNTER → 2024-12-08 14:50 | Outpatient (BNVA) | payer OTHER, SELFPAY | PROVIDERS: PCP Nurse Practitioner Family; Visit Provider Nurse Practitioner Family ==

== ENCOUNTER 2025-04-26 14:30 | Outpatient (AMB) | payer OTHER, SELFPAY ==
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
--- OUTSIDE RECORDS SUMMARY | 2025-04-26 18:13 | XMS_ITS | Encounter Summary ---
Author Organization [facility] Address [address] [place] [address] Phone Care Team Providers Care Repairer Kiln Car Name Role Phone Celestine Nuñez MD Primary Care Provider Sabino mcgee Encounter Details Date Type Department Care Team (Late st Contact Info) Description 12/27/2017 Conversion Encounter [facility] [address] [address] Celestine Nuñez MD Social History Tobacco Use [...] on filedocumented in this encounter Care Teams Repairer Kiln Car Relationship Specialty Start Date End Date Celestine Nuñez MD PCP - General 12/16/17 documented as of this encounter
--- OUTSIDE RECORDS SUMMARY | 2025-04-26 18:13 | XMS_ITS | Encounter Summary ---
Author Organization [facility] Address [address] [place] [address] Phone Care Team Providers Care State Appellate Clerk Name Role Phone Celestine Nuñez MD Primary Care Provider Sabino mcgee Encounter Details Date Type Department Care Team (Late st Contact Info) Description 08/27/2009 Documentation [facility] Family Medicine [address] [place] [address] Family Medicine, Physician [address] [place] [address] Social History Tobacco Use Types Packs/Day Years [...] on filedocumented in this encounter Care Teams State Appellate Clerk Relationship Specialty Start Date End Date Celestine Nuñez MD PCP - General 12/16/17 documented as of this encounter
--- OUTSIDE RECORDS SUMMARY | 2025-04-26 18:13 | XMS_ITS | Clinical Summary ---
Author Organization [facility] Address [address] [place] [address] Phone Care Team Providers Care Newspaper Photojournalist Name Role Phone Celestine Nuñez MD Primary [...] AM EDT Pulse - - Temperature 36.3 C (97.3 F) 03/19/2017 12:00 AM EDT Respiratory Rate - - Oxygen Saturation - [...] 12/12/1999, Additional history exists Influenza Vaccines (#1) 2025 06/27/20 16, 04/25/2015, 04/24/2014, Additional history exists COVID-19 Vaccine ( - season) 2025 Hepatitis B Vaccines Completed 01/21/1999, 1998, 1998 [...] age to complete this topic Care Teams Newspaper Photojournalist Relationship Specialty Start Date End Date Celestine Nuñez MD PCP - General 12/16/17
== END 2025-04-26 15:19 | disposition home or self-care (01) ==
LOC: HO.HMCFM 14:30
PROVIDERS: PCP Nurse Practitioner Family; Visit Provider Nurse Practitioner Family
DX: F17.200 Nicotine dependence, unspecified, uncomplicated (principal); G93.0 Cerebral cysts; Z87.828 Personal history of other (healed) physical injury and trauma; M54.50 Low back pain, unspecified; M54.9 Dorsalgia, unspecified